=== PATIENT | female | born 1965 | race Two or more races ===

== ENCOUNTER 2020-04-29 08:32 | Emergency (ER) | payer OTHER, SELFPAY ==
[2020-04-29 09:36] VITALS: BP 167/71; PULSE 67; RESP 16; TEMP 36.6; O2SAT 100; BMI 41.1
--- NOTE | 2020-04-29 09:58 | ED_ITS ---
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 Admits pain worse with movement. Denies trauma/falls, fever, chills, numbness/tingling, chest pain MD Complaint: extremity pain Onset (ago): day(s) Related Data Previous Rx's Medication Instructions Recorded acetaminophen [Tylenol Extra 500 mg PO Q6H PRN #20 tab 04/29/20 Strength] cyclobenzaprine 5 mg PO Q8H PRN 5 Days #14 tab 04/29/20 lidocaine [Lidoderm] 1 patch TOPICAL DAILY PRN #30 ea 04/29/20 MDD remove after 12 hours naproxen 500 mg PO BID PRN 10 Days #20 tab 04/29/20 Allergies Allergy/AdvReac Type Severity Reaction Status Date / Time No Known Allergies Allergy Unverified 01/03/20 16:03 [No Known Allergies*] Review of Systems Review of Systems: Constitutional: No Weight loss, No Fever, No Chills Cardiovascular: No Chest Pain, No SOB Respiratory: No Cough Musculoskeletal: + joint pain, No Myalgias, + Joint Swelling Skin: No Skin Lesions, No rash Neuro: No Weakness, No Numbness, No Paresthesias Yes all other systems are reviewed and are negative [facility] Past Medical History Attestation statement: The following information was validated with the patient. Medical History (Updated 04/29/20 @ 10:02 by ANALIA Segovia) FHx: cholecystectomy Surgical History (Updated 04/29/20 @ 09:39 by Melvi Calix) H/O tubal ligation Social History Social History Advance Directives: No Advance Directives Information Provided: No Physical Exam Vital Signs: Vital Signs: Last Vital Signs Temp 97.8 F 04/29/20 09:36 Pulse 67 04/29/20 09:36 Resp 16 04/29/20 09:36 BP 167/71 H 04/29/20 09:36 Pulse Ox 100 04/29/20 09:36 Body Mass Index 41.1 Const: General: cooperative and healthy appearing Orientation/consciousness: patient oriented x3 Limitations: no limitations HENMT: Head: Yes normal to inspection Ears: hearing grossly normal bilaterally General nose exam: Normal external nose present Face and sinus: Yes normal facial exam Eyes: General: appearance normal, both eyes and all related structures EOM: EOMs intact bilaterally Neck: Neck: Yes normal visual inspection and Yes no meningeal signs Resp: Effort & Inspection: normal respiratory effort Cardio: Rate: regular rate Peripheral pulses: radial pulses present GI: Inspection: Yes normal to inspection Skin: Rashes: no rashes Wounds: no wounds Neuro: General: patient oriented x3 and no meningeal signs Gait exam (Neuro): Normal gait present Extrem: Other: Left forearm with mild swelling and proximal/volar MSK tenderness to palpation. No deformity. Elbow/wrist/shoulder/hand nontender with full range of motion intact. Pronation/supination intact. No fluctuance/induration or cellulitis. Neurovascularly intact. Pain reproducible with arm movement MDM - Extremity (Nontraumatic) MDM Narrative Medical decision making narrative: On exam VS, NAD/nontoxic-appearing, left forearm MSK tenderness elicited. It is likely MSK pain. Low concern for fracture/dislocation or ACS Discharge Plan Discharge Clinical Impression: Musculoskeletal arm pain Qualifiers: Laterality: left Qualified Code(s): M79.602 - Pain in left arm Patient Disposition: Home, Self-Care Instructions: Musculoskeletal Pain (ED) Additional Instructions: Your pain is most consistent with musculoskeletal strain Flexeril is a muscle relaxer, take at night as it makes you drowsy, do not drive, drink alcohol, or operate machinery while taking it Naproxen as an anti-inflammatory / pain medication, take with food Lidoderm patches are numbing patches, apply to painful area In addition take Tylenol at home If symptoms persist or worsen, pain becomes unbearable, you developed urinary retention or incontinence, or weakness return to the ED Prescriptions: New acetaminophen [Tylenol Extra Strength] 500 mg tablet 500 mg PO Q6H PRN (Reason: pain or fever) Qty: 20 RF: 0 lidocaine [Lidoderm] 5 % adhesive patch,medicated 1 patch topical DAILY MDD remove after 12 hours PRN (Reason: pain) Qty: 30 RF: 0 naproxen 500 mg tablet 500 mg PO BID PRN (Reason: pain) 10 Days Qty: 20 RF: 0 cyclobenzaprine 5 mg tablet 5 mg PO Q8H PRN (Reason: pain (scale score 7-10)) 5 Days Qty: 14 RF: 0 Referrals: Physician,Unknown [Primary Care Provider] - 2 days Stand Alone Forms: Work/School Release
== END 2020-04-29 10:18 | disposition home or self-care (01) ==
PROVIDERS: Emergency Provider Emergency Medicine Emergency Medical Services
DX: M79.632 Pain in left forearm (principal); Z79.899 Other long term (current) drug therapy
CPT/HCPCS: 99283

== ENCOUNTER → 2020-08-18 09:24 | Outpatient (BNVA) | payer MEDICAID, SELFPAY | PROVIDERS: PCP Registered Nurse; Referring Provider Registered Nurse; Visit Provider Physician Assistant | DX: Z12.11 Encounter for screening for malignant neoplasm of colon (principal) | CPT/HCPCS: 99202 ==

== ENCOUNTER 2020-09-04 08:36 | Outpatient (REF) | payer MEDICAID, SELFPAY ==
--- NOTE | ~2020-09-04 | MM_ITS ---
EXAMINATION: MM SCREENING DIGITAL BREAST TOMOSYNTHESIS, BILATERAL CLINICAL INFORMATION: Screening. Asymptomatic. The lifetime risk of breast cancer based on the Tyrer-Cuzick Model is 12%. COMPARISON: Mammography: 01/09/2015 TECHNIQUE: Digital breast tomosynthesis is performed in both the craniocaudal and mediolateral oblique views along with computer-aided detection (CAD). Synthesized 2D images are generated from the tomosynthesis. Additional exaggerated left CC view and additional left MLO view are provided. FINDINGS: The breasts are almost entirely fatty (ACR BI-RADS breast composition Category a). Background stromal markings are stable. There is no developing density or interval mass or architectural abnormality. No abnormal calcifications. The axilla and skin contours are unremarkable. MM/MM tomosynthesis screening BI IMPRESSION: No mammographic evidence of malignancy. ASSESSMENT: BI-RADS 1: Negative RECOMMENDATION: Routine annual mammography screening. This patient's information was entered into a reminder system with a target due date for their next mammogram.
== END 2020-09-04 08:37 | disposition home or self-care (01) ==
LOC: HO.MAMMO 08:36
PROVIDERS: PCP Registered Nurse; Visit Provider Registered Nurse
DX: Z12.31 Encounter for screening mammogram for malignant neoplasm of breast (principal)
CPT/HCPCS: 77063; 77067

== ENCOUNTER 2020-09-23 07:51 | Day surgery (SDC) | payer MEDICAID, SELFPAY ==
[2020-09-17 15:29] VITALS: BMI 39.9
--- NOTE | 2020-09-22 10:34 | P.CONAN_ITS ---
Documented by User: Prudence Saravia 09/22/20 10:34 HPI - Anesthesia Eval Consult details Narrative: 54yo F for Colonoscopy [facility] Active Problems Active Problems: All Active Problems (Updated 09/17/20 @ 15:28 by Merline Charles) Encounter for screening colonoscopy (Acute) Past Medical History Medical History (Updated 09/23/20 @ 11:05 by Zabrina Jimenez) Chronic back pain History of Kelsey's palsy Increased BMI PONV (postoperative nausea and vomiting) Surgical History Surgical History H/O tubal ligation Hx of cholecystectomy Social History Social History Household Members: Children Are you a primary physician assistant primary care to a significant other at home: No Do you presently have visiting nurse or other home services: No Alcohol intake: current Alcohol intake frequency: holidays/special occasions only Patient Tobacco Use Status: Never used Tobacco Use of substances other than those prescribed or required for medical reasons: No Have you been hit, kicked, punched, or otherwise hurt by someone within the past year? 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 Allergies Allergy/AdvReac Type Severity Reaction Status Date / Time No Known Allergies Allergy Unverified 09/17/20 15:26 [No Known Allergies*] Exam Exam Date and Time: September 22, 2020 1034 Height,Weight and Vital Signs: Height 5 ft 4 in Weight 105.687 kg Assessment and Plan Assessment Anesthesia Assessment: Chart Reviewed Documented by User: Zabrina Jimenez 09/23/20 11:05 [facility] Past Medical History Medical History (Updated 09/23/20 @ 11:05 by Zabrina Jimenez) Chronic back pain History of Kelsey's palsy Increased BMI PONV (postoperative nausea and vomiting) Family History Family history of problems with anesthesia: No Surgical History Surgical History H/O tubal ligation Hx of cholecystectomy History of Problems with Anesthesia: No Social History Social History Household Members: Children Are you a primary physician assistant primary care to a significant other at home: No Do you presently have visiting nurse or other home services: No Alcohol intake: current Alcohol intake frequency: holidays/special occasions only Patient Tobacco Use Status: Never used Tobacco Use of substances other than those prescribed or required for medical reasons: No Have you been hit, kicked, punched, or otherwise hurt by someone within the past year? 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 Allergies Allergy/AdvReac Type Severity Reaction Status Date / Time No Known Allergies Allergy Unverified 09/17/20 15:26 [No Known Allergies*] Exam Height,Weight and Vital Signs: Vital Signs Temp Pulse Resp BP Pulse Ox 09/23/20 08:39 47 L 152/76 H 09/23/20 08:35 45 L 09/23/20 08:15 96.9 F 64 16 153/85 H 97 Airway Mallampati Class: II TM Dist: >3cm Neck ROM: Full Heart: RRR Lungs: CTAB Assessment and Plan Assessment Anesthesia Assessment: Anesthesia Plan Discussed and Chart Reviewed Final Anesthetic Review NPO: Yes ASA Class: II Final Preanesthetic Review: No Changes in Pt Med Stat, Meds/Allgs Chart Reviewed, Consent Obtained/Reviewed and Anes Risks/Benef Reviewed Patient Risk: Intermediate Procedure Risk: Low Assessment/Block/Sedation in SS: Assess/Block/Sedation-SS Anesthetic Plan Anesthetic Plan: MAC: Disposition: Standard PACU
--- NOTE | 2020-09-23 08:09 | PC.NURSE ---
RIGHT INNDER WRIST HAD A BURN FROM HOT WATER AT HOME AND SMALL BURN TO ABDOMEN. LAST THRUSDAY.
[2020-09-23 08:15] VITALS: BP 153/85; PULSE 64; RESP 16; TEMP 36.1; O2SAT 97
[2020-09-23 08:35] VITALS: PULSE 45
[2020-09-23] MEDS: Lactated Ringers 1,000 ML 100 ML IVCONT (08:37)
[2020-09-23 08:39] VITALS: BP 152/76; PULSE 47
--- NOTE | 2020-09-23 09:40 | W.PM.OPN ---
Operative Note Operative Note Date of Service: 09/23/20 Narrative: Pre-op diagnosis: Colon cancer screening Post-op diagnosis: other (Colon polyps, diverticulosis) Procedure: COLONOSCOPY TILL CECUM WITH SNARE POLYPECTOMY Consent: Indications for the procedure and potential complications of bleeding, perforation, reaction to medications and missed diagnosis were discussed with the patient and informed consent was obtained. Instrument: Olympus PCF H 190 L variable stiffness pediatric colonoscope Monitoring: Vital signs and clinical assessment, intermittent blood pressure monitoring, continuous EKG monitoring, Pulse oximetry and Carbon Dioxide monitoring were done throughout the procedure. Colon withdrawl time was 25 minutes. Procedure: The patient was placed in the left lateral decubitis position and pre-procedure medications were administered. After a digital rectal examination of the ano-rectum, the video colonoscope was inserted into the rectum and advanced through the colon to the cecum. The colonoscope was slowly withdrawn in a retrograde panoramic fashion and the colon mucosa was carefully examined including a retroflexed view of the rectum. Findings and interventions are described below. Procedure Difficulty: Colon is long and tortuous and there was some loop formation. LLQ pressure was applied to intubate the cecum Findings: Terminal Ileum: Not evaluated Cecum: Normal Ascending Colon: Normal Transverse Colon: Two 7-10 mm sessile polyps removed with a cold snare Descending Colon: Moderate diverticulosis Sigmoid Colon: A 12-15 mm sessile polyp removed with a hot snare and moderate diverticulosis Rectum: Normal Ano-rectum: Normal Colon preparation: Good some irrigation Impression and Post Procedure Diagnosis: Colonoscopy Findings: Three small to medium sized polyps removed Moderate diverticulosis seen in the left colon Plan: Await pathology results Patient has an appointment on 10/08/20 in the GI Clinic with ANALIA Renner. Repeat Colonoscopy interval based on path results - in 3 years if polyps are adenomatous and 10 years if polyps are hyperplastic. Above findings were reviewed with the patient and colon polyps and diverticulosis handouts were given in the discharge area Surgeon: Cordell Heath MD Anesthesia: MAC (Blanca Mendes CRNA) Was an Advertising Copywriter used for this Procedure?: Yes Advertising Copywriter: Obi Barrera Estimated blood loss (mL): 0 Pathology: other (A. TC polyps x 2, B. SC polyp at 30 cms) Condition: stable Disposition: PACU
--- NOTE | 2020-09-23 09:40 | MHC.SHP ---
Pre-Procedural Eval Section B Chief Complaint: Screening Details of Present Illness: colon cancer screening Relevant Family History (Specify if Yes): No Relevant Social History: None Present Medications: see Short Stay Collaborative assessment Medical History: Significant History (Chronic back pain, hx of Kelsey's palsy) History of Previous Operations: Relevant previous surgery/procedure and date(s) (H/O tubal ligation) Allergies: Allergies Allergy/AdvReac Type Severity Reaction Status Date / Time No Known Allergies Allergy Unverified 09/17/20 15:26 [No Known Allergies*] Review of Systems Sugical H&P ROS: Negative: Constitution, Cardiovascular, Respiratory and Gastrointestinal Exam Surgical H&P Exam: Normal: Heart, Normal: Lungs and Normal: Extremities Plan Diagnosis/Plan: Unchanged I have reviewed the history and physical and performed a pertinent physical examination on my patient. No changes have occurred unless specified.
[2020-09-23 10:36] VITALS: BP 111/70; PULSE 88; RESP 16; TEMP 36.2; O2SAT 96
[2020-09-23 10:51] VITALS: BP 123/75; PULSE 69; RESP 18; O2SAT 98
== END 2020-09-23 11:12 | disposition home or self-care (01) ==
PROVIDERS: PCP Registered Nurse; Visit Provider Internal Medicine Gastroenterology
PROC: 0DJD8ZZ Inspection of Lower Intestinal Tract, Via Natural or Artificial Opening Endoscopic (ICD-10-PCS; CPT 45378; principal; 2020-09-23 09:10)
DX: Z12.11 Encounter for screening for malignant neoplasm of colon (principal); D12.5 Benign neoplasm of sigmoid colon; K63.5 Polyp of colon; K57.30 Diverticulosis of large intestine without perforation or abscess without bleeding; Z90.49 Acquired absence of other specified parts of digestive tract
CPT/HCPCS: 45380; 88305

== ENCOUNTER → 2020-10-08 11:46 | Outpatient (BNVA) | payer MEDICAID, SELFPAY | PROVIDERS: PCP Registered Nurse; Referring Provider Registered Nurse; Visit Provider Physician Assistant | DX: Z09 Encounter for follow-up examination after completed treatment for conditions other than malignant neoplasm (principal); K63.5 Polyp of colon; K57.30 Diverticulosis of large intestine without perforation or abscess without bleeding; D36.9 Benign neoplasm, unspecified site; Z68.41 Body mass index [BMI] 40.0-44.9, adult | CPT/HCPCS: 99212 ==

== ENCOUNTER 2021-07-08 09:38 | Outpatient (REF) | payer MEDICAID, SELFPAY ==
--- NOTE | ~2021-07-08 | XR_ITS ---
EXAMINATION: BILATERAL KNEE X-RAY CLINICAL INFORMATION: Pain post fall COMPARISON: None TECHNIQUE: 4 views each knee FINDINGS: Right: Bone alignment is normal. No fracture or dislocation is seen. There are small osteophytes at the patellofemoral joint. Joint spaces are otherwise normal. There is no joint effusion. Left: Bone alignment is normal. No acute fracture or dislocation is seen. There is a well-corticated soft tissue ossification adjacent to the lateral femoral condyle, question related to old trauma. There are small osteophytes at the patellofemoral and femoral tibial joints. There is no joint effusion. XR/XR knee RT 4V IMPRESSION: Mild degenerative changes. No fracture or dislocation.
--- NOTE | ~2021-07-08 | XR_ITS ---
EXAMINATION: BILATERAL KNEE X-RAY CLINICAL INFORMATION: Pain post fall COMPARISON: None TECHNIQUE: 4 views each knee FINDINGS: Right: Bone alignment is normal. No fracture or dislocation is seen. There are small osteophytes at the patellofemoral joint. Joint spaces are otherwise normal. There is no joint effusion. Left: Bone alignment is normal. No acute fracture or dislocation is seen. There is a well-corticated soft tissue ossification adjacent to the lateral femoral condyle, question related to old trauma. There are small osteophytes at the patellofemoral and femoral tibial joints. There is no joint effusion. XR/XR knee LT 4V IMPRESSION: Mild degenerative changes. No fracture or dislocation.
== END 2021-07-08 09:39 | disposition home or self-care (01) ==
LOC: HO.XRAY 09:38
PROVIDERS: Absent Provider Nurse Practitioner; PCP Nurse Practitioner; Visit Provider Family Medicine
DX: M25.561 Pain in right knee (principal); M25.562 Pain in left knee
CPT/HCPCS: 73564

== ENCOUNTER 2021-09-10 09:14 | Outpatient (REF) | payer MEDICAID, SELFPAY ==
--- NOTE | ~2021-09-10 | MM_ITS ---
EXAMINATION: MM SCREENING DIGITAL BREAST TOMOSYNTHESIS, BILATERAL CLINICAL INFORMATION: Screening. Asymptomatic. The lifetime risk of breast cancer based on the Tyrer-Cuzick Model is 10.6%. COMPARISON: Mammography: September 04, 2020 and study of January 09, 2015 TECHNIQUE: Digital breast tomosynthesis is performed in both the craniocaudal and mediolateral oblique views along with computer-aided detection (CAD). Synthesized 2D images are generated from the tomosynthesis. FINDINGS: The breasts are almost entirely fatty (ACR BI-RADS breast composition Category a). There are no significant masses, abnormal calcifications, or other abnormalities. MM/MM tomosynthesis screening BI IMPRESSION: There are no significant changes from prior study. ASSESSMENT: BI-RADS 1: Negative RECOMMENDATION: Routine annual mammography screening. This patient's information was entered into a reminder system with a target due date for their next mammogram.
== END 2021-09-10 09:15 | disposition home or self-care (01) ==
LOC: HO.MAMMO 09:14
PROVIDERS: PCP Nurse Practitioner; Visit Provider Registered Nurse
DX: Z12.31 Encounter for screening mammogram for malignant neoplasm of breast (principal)
CPT/HCPCS: 77063; 77067

== ENCOUNTER 2022-09-16 09:31 | Outpatient (REF) | payer MEDICAID, SELFPAY ==
--- NOTE | ~2022-09-16 | MM_ITS ---
EXAMINATION: MM SCREENING DIGITAL BREAST TOMOSYNTHESIS, BILATERAL CLINICAL INFORMATION: Screening. Asymptomatic. The lifetime risk of breast cancer based on the Tyrer-Cuzick Model is 11%. COMPARISON: Mammography: 09/10/2021, 09/04/2020, 01/09/2015 TECHNIQUE: Digital breast tomosynthesis is performed in both the craniocaudal and mediolateral oblique views along with computer-aided detection (CAD). Synthesized 2D images are generated from the tomosynthesis. FINDINGS: The breasts are almost entirely fatty (ACR BI-RADS breast composition Category a). There are no significant masses, abnormal calcifications, or other abnormalities. Background stromal markings are normal. No developing density or architectural abnormality. The axilla and skin contours are unremarkable. MM/MM tomosynthesis screening BI IMPRESSION: No mammographic evidence of malignancy. ASSESSMENT: BI-RADS 1: Negative RECOMMENDATION: Routine annual mammography screening. This patient's information was entered into a reminder system with a target due date for their next mammogram.
== END 2022-09-16 09:32 | disposition home or self-care (01) ==
LOC: HO.MAMMO 09:31
PROVIDERS: Visit Provider Nurse Practitioner
DX: Z12.31 Encounter for screening mammogram for malignant neoplasm of breast (principal)
CPT/HCPCS: 77063; 77067

== ENCOUNTER 2022-10-28 10:04 | Outpatient (REF) | payer OTHER, SELFPAY ==
--- NOTE | ~2022-10-28 | US_ITS ---
EXAMINATION: US VENOUS ULTRASOUND WITH DOPPLER LOWER EXTREMITY, RIGHT CLINICAL INFORMATION: Pain. COMPARISON: None available. TECHNIQUE: Ultrasound of the deep veins is performed from the hip to the calf with compression sonography and color and pulse Doppler assessment. Spectral analysis with color-flow imaging is performed. FINDINGS: There is normal venous compression and respiratory variation and augmented flow. The visualized common femoral vein, superficial femoral vein, profunda femoral vein, popliteal vein, and the trifurcation region shows no evidence of deep venous thrombosis. There is no significant popliteal fossa cyst. A small varicosities noted. There are shotty, nonpathologically enlarged right inguinal lymph nodes. If the patient's symptoms persist, followup ultrasound in 5 days 7 days might be of value to exclude proximal propagation from a non-visualized calf vein. US/US venous duplex LE RT IMPRESSION: No DVT demonstrated in the right lower extremity.
== END 2022-10-28 10:05 | disposition home or self-care (01) ==
LOC: HO.US 10:04
PROVIDERS: PCP Registered Nurse; Visit Provider Registered Nurse
DX: M79.604 Pain in right leg (principal)
CPT/HCPCS: 93971

== ENCOUNTER 2023-02-17 06:07 | Outpatient (REF) | payer OTHER, SELFPAY ==
--- NOTE | ~2023-02-17 | XR_ITS ---
EXAMINATION: XR KNEE AP STANDING CLINICAL INFORMATION: Pain in right knee COMPARISON: 07/08/2021 TECHNIQUE: AP bilateral standing view of the knees was obtained. And bilateral sunrise knees FINDINGS: Right knee: Small tricompartmental osteophytes. Mild medial joint space narrowing. Left knee: Small tricompartmental osteophytes. Mild medial joint space narrowing. Redemonstration of a well-corticated soft tissue ossification adjacent to the lateral femoral condyle, possibly related to old trauma. XR/XR knee RT 1V IMPRESSION: Mild degenerative changes in bilateral knees.
--- NOTE | ~2023-02-17 | XR_ITS ---
EXAMINATION: XR KNEE AP STANDING CLINICAL INFORMATION: Pain in right knee COMPARISON: 07/08/2021 TECHNIQUE: AP bilateral standing view of the knees was obtained. And bilateral sunrise knees FINDINGS: Right knee: Small tricompartmental osteophytes. Mild medial joint space narrowing. Left knee: Small tricompartmental osteophytes. Mild medial joint space narrowing. Redemonstration of a well-corticated soft tissue ossification adjacent to the lateral femoral condyle, possibly related to old trauma. XR/XR knee standing BI IMPRESSION: Mild degenerative changes in bilateral knees.
--- NOTE | ~2023-02-17 | XR_ITS ---
EXAMINATION: XR KNEE AP STANDING CLINICAL INFORMATION: Pain in right knee COMPARISON: 07/08/2021 TECHNIQUE: AP bilateral standing view of the knees was obtained. And bilateral sunrise knees FINDINGS: Right knee: Small tricompartmental osteophytes. Mild medial joint space narrowing. Left knee: Small tricompartmental osteophytes. Mild medial joint space narrowing. Redemonstration of a well-corticated soft tissue ossification adjacent to the lateral femoral condyle, possibly related to old trauma. XR/XR knee LT 1V IMPRESSION: Mild degenerative changes in bilateral knees.
== END 2023-02-17 06:08 | disposition home or self-care (01) ==
LOC: HO.HOSX 06:07
PROVIDERS: Visit Provider Physician Assistant
DX: M25.561 Pain in right knee (principal); M25.562 Pain in left knee; M22.2X1 Patellofemoral disorders, right knee; M22.2X2 Patellofemoral disorders, left knee; Z91.81 History of falling
CPT/HCPCS: 73560; 73565; 99202

== ENCOUNTER 2023-02-17 10:40 | Outpatient (AMB) | payer OTHER, SELFPAY ==
--- NOTE | 2023-02-17 10:48 | A.OFFVIS_ITS ---
Intake Vital Signs 02/17/23 11:08 Height 5 ft 3.5 in Weight 240 lb BMI 41.8 Intake Visit Reasons: OA B/L knees Intake Note: Radha jacques 57 year old female presents today as a new patient with complaints of bilateral knee pain. Patient reports pain present for a while however about a year ago while at work she fell on both of her knees. States with walking her knee will buckle and has difficulty with stair use. Her left knee is the worse. Attended PT with little relief. Finds little relief with topical cream. Allergies No Known Allergies [No Known Allergies*] Allergy (Verified 02/17/23 11:14) HPI OA B/L knees HPI Details 57-year-old female who presents to the [facility] today for an evaluation of bilateral knee pain s/p fall on her bilateral knees at work, about an year ago. She states she has bilateral knee pain which is worse on her left knee. Her pain is aggravated with stair use, getting in or out of car and standing. She also c/o buckling of her knees with ambulation. She had undergone physical therapy with mild relief. She finds mild relief with topical cream. She does not have a history of diabetes. 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 [facility] Medical History (Updated 02/17/23 @ 11:25 by Joseph Hoang PA-C) Increased BMI Chronic back pain History of Kelsey's palsy PONV (postoperative nausea and vomiting) Surgical History H/O colonoscopy Hx of cholecystectomy H/O tubal ligation Social History (Updated 02/17/23 @ 11:08 by GRICELDA Borden) Household Members: Children Are you a primary health care attorney to a significant other at home: No Do you presently have visiting nurse or other home services: No Alcohol intake: current Alcohol intake frequency: holidays/special occasions only Patient Tobacco Use Status: Never used Tobacco Current occupational status: employed 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 Review of Systems Const All systems reviewed & are unremarkable except as noted in HPI and below Physical Exam Vital Signs: BMI result Body Mass Index 41.8 Const General: cooperative, healthy appearing, comfortable, no acute distress, well developed and alert Orientation/consciousness: patient oriented x3 HEENT Head: Yes normal to inspection, Yes normocephalic and Yes atraumatic Eyes General: appearance normal, both eyes and all related structures Resp Effort & Inspection: normal respiratory effort and able to speak in complete sentences Cardio Rate: regular rate Peripheral pulses: Peripheral pulses 2+ throughout GI Palpation (GI): Soft to palpation Skin Lesions: no lesions Rashes: no rashes Neuro General: patient oriented x3 Extrem Other: Bilateral knee: Skin intact, no erythema or joint effusion. Retropatellar tenderness present. Full ROM with crepitus. Negative Tyler?s. No ligamentous laxity. NVI. Results Reviewed Results Reviewed: Xrays were obtained in the office today and personally reviewed by me of both knees show PF oa Assessment & Plan Assessment & Plan (1) Patellofemoral arthralgia of both knees: Code(s): M22.2X1 - Patellofemoral disorders, right knee; M22.2X2 - Patellofemoral disorders, left knee Plan We discussed options which include PT, NSAIDs and injections. The patient will defer on the injection today and proceed with PT and NSAIDs. I also sent her a prescription of Celebrex in the office today. If symptoms persist, the patient will contact me for an injection, otherwise, PRN. Orders: Orders XR knee standing BI Today M25.561 - Pain in right knee, M25.562 - Pain in left knee XR knee RT 1V Today M25.561 - Pain in right knee XR knee LT 1V Today M25.562 - Pain in left knee PT Evaluation and Treatment Today M22.2X1 - Patellofemoral disorders, right knee, M22.2X2 - Patellofemoral disorders, left knee Medications: New celecoxib (Celebrex) 200 mg PO BID 60 caps 3RF 30 days Patient Instructions: Scribed for Joseph Hoang PA-C, by Humberto James medical support assistant, on 02/17/2023 at 11:00 AM EST. Joseph Whiatker PA-C, have personally reviewed and agree with t he information entered by the scribe. Coding Level of Care Code New Pt Level 3 (99586) Diagnoses Patellofemoral arthralgia of both knees M22.2X1; M22.2X2
[2023-02-17 11:08] VITALS: BMI 41.8
== END 2023-02-17 11:45 | disposition home or self-care (01) ==
PROVIDERS: PCP Registered Nurse; Visit Provider Physician Assistant
DX: M22.2X1 Patellofemoral disorders, right knee (principal); M22.2X2 Patellofemoral disorders, left knee
CPT/HCPCS: 99204

== ENCOUNTER 2023-09-19 09:02 | Outpatient (REF) | payer OTHER, SELFPAY ==
--- NOTE | ~2023-09-19 | MM_ITS ---
EXAMINATION: MM SCREENING DIGITAL BREAST TOMOSYNTHESIS, BILATERAL CLINICAL INFORMATION: Screening. Asymptomatic. COMPARISON: Mammography: This study is compared with prior exams dating back to 2020. TECHNIQUE: Digital breast tomosynthesis is performed in both the craniocaudal and mediolateral oblique views along with computer-aided detection (CAD). Synthesized 2D images are generated from the tomosynthesis. FINDINGS: The breasts are almost entirely fatty (ACR BI-RADS breast composition Category a). There are no significant masses, abnormal calcifications, or other abnormalities. MM/MM tomosynthesis screening BI IMPRESSION: No mammographic evidence of malignancy. ASSESSMENT: BI-RADS BI-RADS 1 - Negative RECOMMENDATION: Routine annual mammography screening. 1 year F/U This examination should not preclude the clinical evaluation of a suspicious palpable abnormality. This patient's information was entered into a reminder system with a target due date for their next mammogram.
== END 2023-09-19 09:03 | disposition home or self-care (01) ==
LOC: HO.MAMMO 09:02
PROVIDERS: PCP Registered Nurse; Visit Provider Nurse Practitioner
DX: Z12.31 Encounter for screening mammogram for malignant neoplasm of breast (principal)
CPT/HCPCS: 77063; 77067

== ENCOUNTER → 2023-09-19 09:15 | Outpatient (BNV) | payer OTHER, SELFPAY | PROVIDERS: PCP Registered Nurse; Visit Provider Radiology Diagnostic Radiology | DX: Z12.31 Encounter for screening mammogram for malignant neoplasm of breast (principal) | CPT/HCPCS: 77063; 77067 ==

== ENCOUNTER 2023-11-01 13:05 | Outpatient (REF) | payer OTHER, SELFPAY ==
--- NOTE | ~2023-11-01 | XR_ITS ---
EXAMINATION: XR ELBOW, LEFT CLINICAL INFORMATION: Left elbow pain COMPARISON: None available. TECHNIQUE: Four views of the left elbow. FINDINGS: The elbow joint spaces are well-preserved. No arthritic deformity. No fracture, subluxation or elbow joint effusion. There is minimal enthesophyte formation of the lateral epicondyle. The soft tissues are unremarkable. XR/XR elbow LT min 3V IMPRESSION: * No evidence of arthritic disease or joint effusion at the left elbow. * Minimal enthesophyte formation of the lateral humeral epicondyle.
== END 2023-11-01 13:06 | disposition home or self-care (01) ==
LOC: HO.HHCX 13:05
PROVIDERS: Visit Provider Family Medicine
DX: M25.522 Pain in left elbow (principal)
CPT/HCPCS: 73080

== ENCOUNTER 2024-09-20 08:33 | Outpatient (REF) | payer OTHER, SELFPAY ==
--- NOTE | ~2024-09-20 | MM_ITS ---
EXAMINATION: MM SCREENING DIGITAL BREAST TOMOSYNTHESIS, BILATERAL CLINICAL INFORMATION: Screening. Asymptomatic. COMPARISON: Mammography: Comparison is made with available priors TECHNIQUE: Digital breast mammography with tomosynthesis is performed in both the craniocaudal and mediolateral oblique views along with computer-aided detection (CAD). FINDINGS: There are scattered areas of fibroglandular density (ACR BI-RADS breast composition Category b). There are no significant masses, abnormal calcifications, or other abnormalities. MM/MM tomosynthesis screening BI IMPRESSION: No mammographic evidence of malignancy. ASSESSMENT: BI-RADS BI-RADS 1 - Negative RECOMMENDATION: Routine annual mammography screening. 1 year F/U This examination should not preclude the clinical evaluation of a suspicious palpable abnormality. This patient's information was entered into a reminder system with a target due date for their next mammogram. Electronically signed by: Pamela Zavala DO 09/24/2024 01:01 PM EDT
--- OUTSIDE RECORDS SUMMARY | 2024-09-20 08:54 | XMS_ITS | Encounter Summary ---
Author Organization [employer] Address [address] [place] [address] [address] [place] [address] Care Team Providers Care Compliance Manager Name Role Phone Yessenia Looney Primary Care Provider [phone] Reason for Visit * Reason Onset Date Comments Appointment Request 09/13/2023 Encounter Details Date Type Department Care Team ([facility] st Contact Info) Description 09/13/2023 Telephone [facility] MEDICINE [address] [place] [address] Yessenia Looney FNP [address] [place] [address] Appointment Request Social History Tobacco Use Types Packs/Day Years Used Date Smoking Tobacco: Never Smokeless Tobacco: Never Alcohol Use Standard Drinks/Week Comments Yes 0 (1 standard drink = 0.6 oz pur e alcohol) Rare occasions Depression Answer Date Recorded Patient Health Questionnaire-9 Score 1 10/28/2022 Housing Stability Answer Date Recorded What is your housing situation today? I have real rosa 02/14/[address] you li ve. Do you have problems with any of the following? None of the above 02/14/2023 Food Insecurity Answer Date Recorded Within the past 12 months, y ou worried that your food would run out before you got money to buy more: Never True 02/14/2023 Within the past 12 months,th e food you bought just didn't last and you didn't have enough money to get more: Never True Transportation Answer Date Recorded In the past 12 months, has l ack of transportation kept you from medical appts, meetings, work or from getting things needed for daily living? No 02/14/2023 Utilities Answer Date Recorded In the past 12 months, has t he electric, gas, oil or water company threatened to shut off services in your home? No 02/14/2023 Depression Answer Date Recorded Patient Health Questionnaire-2 Score 0 10/28/2022 Comments Unknown Sex and Gender Information Value Date Recorded Sex Assigned at Female 02/15/2022 10:14 AM EDT Legal Sex Female 10:14 AM EDT Gender Identity Female 02/15/2022 10:14 AM EDT Sexual Orientation Don't know 02/15/2022 10 :14 AM EDT documented as of this encounter Miscellaneous Notes * Telephone Encounter - Jed Marcos - 09/13/2023 1:14 PM EDT Tc from pt had a punctual stenosis done with [facility] and was advised bu surgeon to follow up with pcp. Please contact pt at [phone] documented in this encounter Plan of Treatment Upcoming Encounters Date Type Department Care Team (Late st Contact Info) Description 10/17/2024 9:45 AM EDT Office Visit [facility] MED[facility] [address] [place] [address] Yessenia Looney FNP [address] [place] [address] documented as of this encounter Visit Diagnoses Not on filedocumented in this encounter Additional Health Concerns Assessment Noted Time PHQ-9 Depression Total Score: 1 10/29/19 23 8:49 AM EDT documented as of this encounter Care Teams Compliance Manager Relationship Specialty Start Date End Date Yessenia Looney FNP [address] [place] [address] PCP - General Family Medicine 12/09/21 documented as of this encounter
== END 2024-09-20 08:34 | disposition home or self-care (01) ==
LOC: HO.MAMMO 08:33
PROVIDERS: PCP Registered Nurse; Visit Provider Registered Nurse
DX: Z12.31 Encounter for screening mammogram for malignant neoplasm of breast (principal)
CPT/HCPCS: 77063; 77067

== ENCOUNTER → 2024-09-20 09:00 | Outpatient (BNV) | payer OTHER, SELFPAY | PROVIDERS: PCP Registered Nurse; Visit Provider Internal Medicine | DX: Z12.31 Encounter for screening mammogram for malignant neoplasm of breast (principal) | CPT/HCPCS: 77063; 77067 ==

== ENCOUNTER 2024-10-17 10:32 | Outpatient (REF) | payer OTHER, SELFPAY ==
--- OUTSIDE RECORDS SUMMARY | 2024-10-17 11:11 | XMS_ITS | Encounter Summary ---
Author Organization [employer] Address [address] [facility] [address] [place] [address] Care Team Providers Care Autocad Electrical Designer Name Role Phone Yessenia Looney Primary Care Provider [phone] Reason for Visit * Reason Onset Date Comments Appointment Request 09/13/2023 Encounter Details Date Type Department Care Team ([facility] st Contact Info) Description 09/13/2023 Telephone [facility] MEDICINE [address] [place] [address] Yessenia Looney FNP [address] [place] [address] Appointment Request Social History Tobacco Use Types [...] pt had a punctual stenosis done with [facility] and was advised bu surgeon to follow up with pcp. Please contact pt at [phone] documented in this encounter Plan of Treatment Not on file documented as of this encounter Visit Diagnoses Not on filedocumented in this encounter Additional Health Concerns Assessment Noted Time PHQ-9 Depression Total Score: 1 10/29/19 23 8:49 AM EDT documented as of this encounter Care Teams Autocad Electrical Designer Relationship Specialty Start Date End Date Yessenia Looney FNP [address] [place] [address] PCP - General Family Medicine 12/09/21 documented as of this encounter
[2024-10-17 11:26] LABS: MANUAL DIFF FLAG NO
[2024-10-17 11:48] LABS: Hematocrit 42.4 % (37.0-47.0); Hemoglobin 14.1 g/dl (12.0-16.0); Imm Gran Abs Auto 0.08 X10*3/uL (0.00-0.03); Imm Gran Pct Auto 0.8 % (0.0-0.4); Lymphocytes Absolute Auto 3.0 X10*3/uL (1.2-4.9); Mean Corpuscular HGB Conc 33.3 g/dl (31.0-35.0); Mean Corpuscular Hemoglobin 30.5 pg (27.0-33.0); Mean Corpuscular Volume 91.8 fL (80.0-98.0); NRBC Abs Auto 0.000 X10*3/uL (0.0-0.012); NRBC Pct Auto 0.0 /100WBC (0.0-0.2); Platelet Count 344 X10*3/uL (160-400); Red Blood Count 4.62 X10*6/uL (4.20-5.50); White Blood Count 10.4 X10*3/uL (4.8-10.8)
[2024-10-17 11:56] LABS: Hemoglobin A1C 140.1224 umol/L; Total Hemoglobin (HGBA1C) 3725.4636 umol/L
[2024-10-17 13:03] LABS: Alanine Aminotransferase 33 U/L (0-31); Albumin Level 4.3 g/dL (3.5-5.0); Alkaline Phosphatase 106 U/L (39-117); Anion Gap 11 (12-20); Aspartate Amino Transferase 27 U/L (5-31); Blood Urea Nitrogen 14 mg/dL (9-16); Calcium 9.5 mg/dL (8.4-10.2); Carbon Dioxide 29 mmol/L (22-29); Chloride 104 mmol/L (96-108); Cholesterol 231 mg/dL (<200); Estimated Glomerular Filt Rate > 60; HDL Cholesterol 56 mg/dL (>40); Magnesium 2.1 mg/dL (1.6-2.6); Potassium 3.7 mmol/L (3.3-5.1); Sodium 140 mmol/L (135-145); Total Protein 7.1 g/dL (6.5-8.0); Triglycerides 99 mg/dL (<150)
[2024-10-17 13:13] LABS: HIV Num 1 0.05 S/CO (0.00-0.99)
[2024-10-17 13:19] LABS: Folate 14.6 ng/mL (> or = 4.0); Vitamin B12 646 pg/mL (200-900)
[2024-10-17 18:44] LABS: CT PCR Urine NOT DETECTED (Not Detect.); NG PCR Urine NOT DETECTED (Not Detect.)
[2024-10-18 16:48] LABS: HCV Log PCR <1.18 NOT DETECTED Log IU/mL (NOT DETECTED); HepC Viral Load <15 NOT DETECTED IU/mL (NOT DETECTED)
== END 2024-10-17 10:33 | disposition home or self-care (01) ==
LOC: HO.HHCL 10:32
PROVIDERS: PCP Registered Nurse; Visit Provider Registered Nurse
DX: Z00.00 Encounter for general adult medical examination without abnormal findings (principal)
CPT/HCPCS: 36415; 80053; 80061; 82043; 82306; 82570; 82607; 82746; 83036; 83735; 84443; 85025; 86592; 87389; 87491; 87522; 87591

== ENCOUNTER 2024-12-14 14:40 | Outpatient (REF) | payer OTHER, SELFPAY ==
--- OUTSIDE RECORDS SUMMARY | 2024-12-14 14:43 | XMS_ITS | Encounter Summary ---
Author Organization [employer] Address [address] [place] [address] Care Team Providers Care Tobacco Warehouse Agent Name Role Phone Yessenia Looney JIN Primary Care Provider [phone] Encounter Details Date Type Department Care Team ([facility] st Contact Info) Description 03/03/2023 Abstract [facility] MEDICINE [address] [place] [address] Ngoc Shepherd Social History Tobacco Use Types Packs/Day Years [...] AM EDT documented as of this encounter Plan of Treatment Upcoming Encounters Date Type Department Care Team (Late st Contact Info) Description 12/19/2024 9:45 AM EDT Office Visit [facility] MEDICINE [address] [place] [address] Yessenia Looney FNP [address] [place] [address] documented as of this encounter Procedures Procedure Name Priority Date/Time Associated Diagnosis Comments COLONOSCOPY Routine 09/23/2020 documented in this encounter Results * Colonoscopy (09/23/2020) Colonoscopy Normal Normal Narrative Tita Lopez - 09/23/2020 Recommended 3 year follow up us Historical Provider HEALTH MAINTENANCE Edited Result - Final documented in this encounter Visit Diagnoses Not on filedocumented in this encounter Additional Health Concerns Assessment Noted Time PHQ-9 Depression Total Score: 1 10/29/19 23 8:49 AM EDT documented as of this encounter Care Teams Tobacco Warehouse Agent Relationship Specialty Start Date End Date Yessenia Looney FNP [address] [place] [address] PCP - General Family Medicine 12/09/21 documented as of this encounter
--- OUTSIDE RECORDS SUMMARY | 2024-12-14 14:43 | XMS_ITS | Encounter Summary ---
Author Organization [facility] Address [address] [place] [address] [address] [place] [address] Care Team Providers Care Lubrication Technician Name Role Phone Yessenia Looney Primary Care Provider [phone] Encounter Details Date Type Department Care Team (Latest Contact Info) Description 11/26/2020 Abstract [facility] CONVERSIONS Dental, Provider, DDS Social History Tobacco Use Types Packs/Day Years Used Date Smoking Tobacco: Never Assessed Comments Unknown Sex and Gender Information Value [...] Description 12/19/2024 9:45 AM EDT Office Visit [facility] MEDICINE [address] [place] [address] Yessenia Looney FNP [address] [place] [address] documented as of this encounter Visit Diagnoses Not on filedocumented in this encounter Care Teams Lubrication Technician Relationship Specialty Start Date End Date Yessenia Looney FNP [address] [place] [address] PCP - General Family Medicine 12/09/21 documented as of this encounter
--- OUTSIDE RECORDS SUMMARY | 2024-12-14 14:43 | XMS_ITS | Clinical Summary ---
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 Dx hypertension 1 kit 4 Active tobramycin-dexA METHasone (Tobradex) ophthalmic suspension INSTILL 1 DROP INTO BOTH EYES TWO TIMES A DAY 4 Active losartan-hydroC HLOROthiazide (Hyzaar) 50-12.5 MG tablet TAKE 1 TABLET BY MOUTH EVERY MORNING 90 tablet 3 4 Active naproxen (Naprosyn) 500 MG tabletIndicatio ns:Pain Take 1 tablet (500 mg) by mouth if needed in the morning and at bedtime for mild pain. 30 tablet 5 05/14/19 26 Active Diclofenac Sodium (Voltaren) 1 % gelIndications: Pain Use by topical route 4 times daily as needed for pain 150 g 3 5 Active Active Problems Problem Noted Date Diagnosed Date Pain 05/15/2024 Assessment & Plan (05/15/2024 7:23 PM EST): Area of tenderness to the base of neck and lower right trapezius muscle Plan Take Naprosyn 500 mg twice daily as needed Diclofenac sodium 1% gel - apply to tender area prn Healthcare maintenance 10/28/2022 Overview (10/18/2024): Colonoscopy: 09/23/20. 3 polyps removed and noted moderate diverticulosis in the left colon. Repeat in 3 year Mammo: 09/20/24: BIRADS 1 Osteoarthritis of both knees 07/29/2022 Overview (08/04/2023): -XR 07/08/21: IMPRESSION: Mild degenerative changes. No fracture or dislocation. -Continues with APAP PRN, trial nabumetone BID PRN -Eval by [facility] [place] 2023 Assessment & Plan (08/04/2023 10:33 AM EDT): Discussed evidence and consideration of turmeric for arthritis (pt already using in her cooking) Assessment & Plan (10/31/2022 6:12 PM EDT): Continue with APAP PRN In agreement with referral to Ortho Assessment & Plan (07/29/2022 12:10 PM EDT): -Declines interest in referral to PT, ortho, or [facility] joint injection clinic at this time -Encouraged symptomatic management including topical voltaren and lidocaine patches PRN -Continue with APAP PRN Follow up in 2 months, sooner PRN Bilateral epiphora 05/07/2022 Overview (03/17/2023): -Symptoms began mid Mar 2022 -Eval at [facility] 06/03/22 that revealed stenosis of bilateral lower puncta, to the point of causing epiphora -[facility] Mar [facility]23: bilateral punctual stenosis Assessment & Plan (08/04/2023 10:41 AM EDT): -Symptoms have improved s/p procedure. 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 -Followed with specialists including [facility] in the past Class 3 severe obesity in adult 04/24/2022 Essential hypertension 07/17/2021 Overview (03/17/2023): -BP goal < 140/90 mmHg -Continues with losartan-hydrochlorothiazide 50-12.5 mg daily Assessment & Plan (10/18/2024 7:24 AM EDT): Well controlled with current regimen Assessment & Plan (08/04/2023 10:33 AM EDT): Well controlled with current regimen BP monitor sent to pharmacy to record home readings Assessment & Plan (03/17/2023 5:40 PM EST): Well controlled Resolved Problems Problem Noted Date Diagnosed Date Resolved Date Fall 05/15/2024 10/18/2024 Assessment & Plan (05/15/2024 7:16 PM EST): Radha fell back wards hitting the base of her neck and back while attempting to climb a chair to adjust her curtain. No loss of consciousness, weakness, numbness or major trauma. No bruises or laceration to the head or neck. Neuro evaluation with in normal limits. Tenderness to the upper and lower right trapezius muscle. Neck supple ROM intact. Negative for pain in the bony prominence of the neck. No history of previous fall Plan Take your pain medications as prescribed. Apply topical pain gel to area of tenderness as prescribed Evaluated patient medications that can increase fall risk. Patient education on BP medication Patient education on fall prevention and safe practices. Use of step stool with railing to reach high objects. If possible ask for assistance in elevated tasks Report immediately if there is worsening or persistent headache, confusion, severe drowsiness, blurry vision or loss of balance Follow up in 2-4 wks Morbid obesity 07/17/2021 04/24/2022 Encounters Date Type Department Care Team Description 10/22/2024 Results Follow-Up [facility] [address] [place] [address] Yessenia Looney FNP Albumin, Random Urine W/Creatinine, Lipid Panel, Standard, Hemoglobin A1c, Additional followed-up results: 9 10/17/2024 9:45 AM EDT Office Visit [facility] MEDICINE [address] [place] [address] Yessenia Looney FNP Essential hypertension (Primary Dx); Numbness and tingling; Healthcare maintenance 10/17/2024 Travel 10/16/2024 Telephone [facility] MEDICINE [address] [place], [place] [phone] Yessenia Looney FNP Chart Prep 09/20/2024 Orders Only [facility] [address] [place], [place] [phone] Yessenia Looney FNP 09/19/2024 Telephone [facility] MEDICINE [address] [place], [place] [phone] Yessenia Looney FNP Nurse Triage from Last 3 Months Immunizations Immunization Administration Dates Next Due INFLUENZA INJECTABLE QUADRIV ALANT CCIIV4 MDCK Multi-dose vial 04/28/2021 INFLUENZA VACCINE QUADRIVALE NT RECOMBINANT PRESERVATIVE FREE RIV4 02/14/2020 Influenza injectable quadriv alent IIV4 with preservative 01/02/2015 Influenza injectable quadrivalent preservative f ree 03/16/2023,04/23/2022 Tdap 01/02/2015 Zoster, Recombinant 09/16/2020,07/15/2020 Social History Tobacco Use Types Packs/Day Years Used Date Smoking Tobacco: Never Passive Smoke Exposure: Never Smokeless Tobacco: Never Tobacco Cessation:Counseling Given: Not Answered Alcohol Use Standard Drinks/Week Comments Yes 0 (1 standard drink = 0.6 oz pur e alcohol) Rare occasions Depression Answer Date Recorded Patient Health Questionnaire-9 Score 0 05/14/2024 Patient Health Questionnaire-9 Score 0 05/14/2024 Last PHQ-9: Questionnaire Data Not on file 0 05/14/2024 Housing Stability Answer Date Recorded What is your housing situation today? I have real rosa 05/14/[address] you li ve. Do you have problems with any of the following? None of the above 05/14/2024 Food Insecurity Answer Date Recorded Within the past 12 months, y ou worried that your food would run out before you got money to buy more: Never True 05/14/2024 Within the past 12 months,th e food you bought just didn't last and you didn't have enough money to get more: Never True Transportation Answer Date Recorded In the past 12 months, has l ack of transportation kept you from medical appts, meetings, work or from getting things needed for daily living? No 05/14/2024 Utilities Answer Date Recorded In the past 12 months, has t he electric, gas, oil or water company threatened to shut off services in your home? No 05/14/2024 Depression Answer Date Recorded Patient Health Questionnaire-2 Score 0 05/14/2024 Internet Access Answer Date Recorded Internet Access Q1 Yes 05/14/2024 Internet Access Q2 Not on file 05/14/2024 Comments Unknown Sex and Gender Information Value Date Recorded Sex Assigned at Female 02/15/2022 10:14 AM EDT Legal Sex Female 10:14 AM EDT Gender Identity Female 02/15/2022 10:14 AM EDT Sexual Orientation Don't know 02/15/2022 10 :14 AM EDT Last Filed Vital Signs Vital Sign Reading Time Taken Comments Blood Pressure 124/86 10/17/2024 9:55 AM EDT Pulse 75 10/17/2024 9:55 AM EDT Temperature 36.1 C (96.9 F) 10/17/2024 9:55 AM EDT Respiratory Rate 20 10/17/2024 9:55 AM EDT Oxygen Saturation 98% 10/17/2024 9:55 AM EDT Inhaled Oxygen Concentration - - Weight 108 kg (238 lb 12.8 oz) 10/17/2024 9:55 A M EDT Height 160 cm (5' 3 ) 10/17/2024 9:55 AM EDT Body Mass Index 42.3 10/17/2024 9:55 AM EDT Plan of Treatment Upcoming Encounters Date Type Department Care Team (Late st Contact Info) Description 12/19/2024 9:45 AM EDT Office Visit [facility] MEDIC[facility] [address] [place] [address] Yessenia Looney, JIN [address] [place], [place] [phone] Health Maintenance Due Date Last Done Comments CT Colonography 1965 FIT DNA/Cologuard 1965 FIT 1965 FOBT 1965 Sigmoidoscopy 1965 Hepatitis B Vaccines (1 of 3 - 19+ 3-dose series) 1984 HPV/Cotest 10/02/1995 Pneumococcal Vaccine: 50+ Years (1 of 1 - PCV) 10/02/2015 Cervical Cancer Screening 11/26/2021 Pap Smear 11/26/2021 11/26/2020 Colonoscopy 09/24/2023 09/23/2020 Colorectal Cancer Screening 09/24/2023 COVID-19 Vaccine (3 - season) 2023 02/16/2021, 01/26/2021 Influenza Vaccine (#1) 2024 , 04/23/2022, 04/28/2021, Additional history exists DTaP/Tdap/Td Vaccines (2 - Td or Tdap) 01/02/2025 01/02/2015 Alcohol/Substance Use Screening 05/14/2025 05/14/2024 Depression Screening 05/14/2025 05/14/2024, 05/14/19 25 SDOH Screening 05/14/2025 05/14/2024 Mammogram 09/20/2025 09/20/2024, 06/0 06/2023, 09/10/2021, Additional history exists Disability Screening 10/17/2025 10/17/2024 Tobacco Screening 10/17/2025 10/17/2024 Lipid Panel 10/17/2029 10/17/2024, 08/0 08/2021, 07/23/2020 RSV Patients and Patients Aged 60 years or older (1 - 1-dose 75+ series) 2040 Zoster Vaccines Completed 09/16/2020, 07/15/2020 HIV Screening Completed 10/17/2024, 11/20/2021 Hepatitis C Screening Completed 10/17/2024, 021 HIB Vaccines Aged Out No longer eligi ble based on patient's age to complete this topic HPV Vaccines Aged Out No longer eligi ble based on patient's age to complete this topic Hepatitis A Vaccines Aged Out No long er eligible based on patient's age to complete this topic IPV Vaccines Aged Out No longer eligi ble based on patient's age to complete this topic Meningococcal B Vaccine Aged Out No l onger eligible based on patient's age to complete this topic Meningococcal Vaccine Aged Out No [place] eligible based on patient's age to complete this topic RSV under 20 months Aged Out No longe r eligible based on patient's age to complete this topic Rotavirus Vaccines Aged Out No longer eligible based on patient's age to complete this topic Procedures Procedure Name Priority Date/Time Associated Diagnosis Comments CHLAMYDIA/TRICHOMONAS/ NEISSERIA GONORRHOEAE, PCR, URINE Routine 10/17/2024 10:36 AM EDT MAGNESIUM Routine 10/17/2024 10:36 AM EDT Healthcare maintenance VITAMIN D,25-OH,TOTAL,IA Routine 10/17/2024 10:36 AM EDT Healthcare maintenance VITAMIN B12/FOLATE, SERUM PANEL Routine 10/17/2024 10:36 AM EDT Healthcare maintenance HIV 1/2 ANTIGEN/ANTIBODY, FOURTH GENERATION W/RFL Routine 10/17/2024 10:36 AM EDT Healthcare maintenance RPR (MONITOR) W/REFL TITER Routine 10/17/2024 10:36 AM EDT Healthcare maintenance HEPATITIS C VIRAL RNA, QUANTITATIVE, REAL-TIME PCR Routine 10/17/2024 10:36 AM EDT Healthcare maintenance CBC WITH AUTO DIFFERENTIAL Routine 10/17/2024 10:36 AM EDT Healthcare maintenance COMPREHENSIVE METABOLIC PANEL Routine 10/17/2024 10:36 AM EDT Healthcare maintenance TSH W/REFLEX TO FT4 Routine 10/17/2024 1 0:36 AM EDT Healthcare maintenance HEMOGLOBIN A1C Routine 10/17/2024 10:36 AM EDT Healthcare maintenance LIPID PANEL, STANDARD Routine 10/17/2024 10:36 AM EDT Healthcare maintenance ALBUMIN, RANDOM URINE W/CREATININE Routine 10/17/2024 10:36 AM EDT Healthcare maintenance BI MAMMOGRAM SCREENING TOMOSYNTHESIS BILATERAL Routine 09/20/2024 9:15 AM EDT THINPREP IMAGING SYSTEM PAP Routine 11/26/2020 7:26 AM EDT HM COLONOSCOPY Routine 09/23/2020 from Last 3 Months or Most Recently Relevant to Health Maintenance Results * Chlamydia/Trichomonas/Neisseria gonorrhoeae, PCR, Urine (10/17/2024 10:36 AM EDT) CT PCR, Urine NOT DETECTED Not Detect. [facility] Comment:A not detected test result does not exclude the possibilityof infection because test results can be affected byimproper specimen collection, concurrent antibiotic therapy,or the number of organisms in the specimen which may bebelow the sensitivity of the test. As with many diagnostictests, results from the Xpert CT/NG assay should beinterpreted in conjunction with other laboratory andclinical data available to the clinician.The Xpert CT/NG assay should not be used for the evaluationof suspected sexual abuse or for other medico-legalindications. Additional testing is recommended in anycircumstance when false positive or false negative resultscould lead to adverse medical, social or psychologicalconsequences. NG PCR, Urine NOT DETECTED Not Detect. [facility] Comment:A not detected test result does not exclude the possibilityof infection because test results can be affected byimproper specimen collection, concurrent antibiotic therapy,or the number of organisms in the specimen which may bebelow the sensitivity of the test. As with many diagnostictests, results from the Xpert CT/NG assay should beinterpreted in conjunction with other laboratory andclinical data available to the clinician.The Xpert CT/NG assay should not be used for the evaluationof suspected sexual abuse or for other medico-legalindications. Additional testing is recommended in anycircumstance when false positive or false negative resultscould lead to adverse medical, social or psychologicalconsequences. 10/17/2024 10:3 6 AM EDT 10/17/2024 11:13 AM EDT Yessenia Stoddardemil [facility] URINE ORDERABLES Final Res ult Performing Organization Address City/[facility]/ZIP Co de Phone Number [facility] [address] [place] [phone] * Vitamin D, 25-Hydroxy, Total, Immunoassay (10/17/2024 10:36 AM EDT) Vitamin D 25-OH Total 34.7 >30 ng/mL [facility] Comment: Health Based Reference Values*< 20 ng/mL Shlqmjxgz21-20 ng/mL Insufficient> 30 ng/mL Sufficient*Teresa BURGOS. N Engl J Med. 2007;357:266-280There is no well-established upper level of normal vitamin Dlevels. Some laboratories use 50 ng/mL as an upper limit ofnormal. However, toxicity is patient-dependent and may occurat any level. Careful correlation with the patient'spresentation is necessary and, if there is concern forvitamin D toxicity, treatment should be consideredirrespective of the serum level.Care must be taken in interpreting Vitamin D results fromdifferent laboratories and methodologies. Published datademonstrated that results from patients undergoinghemodialysis may show a negative bias when tested withvarious automated 25-OH vitamin D assays when compared toLC-MS/MS.When testing samples from patients whose predominant form ofVitamin D is Vitamin D2, such as patients receiving VitaminD2 supplementation, results that are subtherapeutic shouldbe confirmed with another method such as LC-MS/MS. Blood Venous blood specimen / Unknown 10/17/2024 10:36 AM EDT 10/17/2024 11:56 AM EDT Yessenia Looney [facility] BLOOD ORDERABLES Final Res ult Performing Organization Address [facility]/ZIP Co de Phone Number [facility] [address] [place] [phone] * Vitamin B12/Folate, Serum Panel (10/17/2024 10:36 AM EDT) Vitamin B12 646 200 - 900 pg/mL [facility] Comment:NORMAL 200-900 PG/ML INDETERMINATE 160-199 PG/ML DEFICIENT < 160 PG/ML Folate 14.6 > or = 4.0 ng/mL [facility] Comment:Reference Values:> o r = 4.0 ng/mL< 4.0 ng/mL suggests folate deficiency Methotrexate, aminopterin and folinic acid(leucovorin) are chemotherapeutic agents whose molecularstructures are similar to folate; therefore, the Architectfolate assay cannot be used for patients using these drugs. Blood Venous blood specimen / Unknown 10/17/2024 10:36 AM EDT 10/17/2024 11:56 AM EDT Yessenia Looney [facility] BLOOD ORDERABLES Final Res ult Performing Organization Address [facility] Co de Phone Number [facility] [address] [place] [address] [phone] * TSH with Reflex to Free T4 (10/17/2024 10:36 AM EDT) TSH reflex Free T4 1.04 0.32 - 4.0 uIU/mL [facility] Blood 10/17/2024 10:3 6 AM EDT 10/17/2024 11:56 AM EDT Yessenia Looney RN ASSESSMENT LAB BLOOD ORDERABLES Final Res ult Performing Organization Address [facility] Co de Phone Number [facility] [address] [place] [phone] * Hepatitis C Viral RNA, Quantitative, Real-Time PCR (10/17/2024 10:36 AM EDT) Hepatitis C Viral Load <15 NOT DETECTED NOT DETECTED IU/mL [facility] HCV Log PCR <1.18 NOT DETECTED NOT DETECTED Log IU/mL [facility] Comment:For additional infor jim, please refer [email or web address].[employer]/faq/FMP09r7(This link is being provided for informational/educational purposes only.)THIS TEST WAS PERFORMED AT:[employer] [place] [phone] MC MD Blood 10/17/2024 10:3 6 AM EDT 10/17/2024 11:51 AM EDT Yessenia Looney RN ASSESSMENT LAB BLOOD ORDERABLES Final Res ult Performing Organization Address [facility]/ZIP Co de Phone Number [facility] [address] [place] [phone] * Albumin, Random Urine W/Creatinine (10/17/2024 10:36 AM EDT) Creatinine, Urine 65.64 mg/dL [facility] Microalbumin Urine <5.0 mg/L [facility] Microalbum Creatinine Ratio Ur TNP <30 ug/mg cr [facility] Comment:Unable to calculate albumin/creatinine ratio due to lowmicroalbumin or creatinine result. Urine 10/17/2024 10:3 6 AM EDT 10/17/2024 11:01 AM EDT Yessenia Looney RN ASSESSMENT LAB URINE ORDERABLES Final Res ult Performing Organization Address [facility] de Phone Number [facility] [address] [place] [phone] * (ABNORMAL) CBC auto differential (10/17/2024 10:36 AM EDT) White Blood Count 10.4 4.8 - 10.8 X10*3/uL [facility] Red Blood Count 4.62 4.20 - 5.50 X10*6/uL [facility] Hemoglobin 14.1 12.0 - 16.0 g/dl [facility] Hematocrit 42.4 37.0 - 47.0 % [facility] Mean Corpuscular Volume 91.8 80.0 - 98.0 fL [facility] Mean Corpuscular Hemoglobin 30.5 27.0 - 33.0 pg [facility] Mean Corpuscular HGB Conc 33.3 31.0 - 35.0 g/dl [facility] Red Cell Distribution Width 13.6 11.0 - 16.0 % [facility] Platelet Count 344 160 - 400 X10*3/uL [facility] Mean Platelet Volume 10.4 9.4 - 12.3 fL [facility] Neutrophils Percent Auto 63.3 45 - 73 % [facility] Imm Gran Pct Auto 0.8(H) 0.0 - 0.4 % [facility] Lymphocytes Percent Auto 28.8 20 - 40 % [facility] Monocytes Percent Auto 6.2 2 - 11 % [facility] Eosinophils Percent Auto 0.6 0 - 4 % [facility] Basophils Percent Auto 0.3 0 - 2 % [facility] NRBC Pct Auto 0.0 0.0 - 0.2 /100WBC [facility] Neutrophils Absolute Auto 6.6 2.0 - 8.3 x10*3/uL [facility] Imm Gran Abs Auto 0.08(H) 0.00 - 0.03 X10*3/uL [facility] Lymphocytes Absolute Auto 3.0 1.2 - 4.9 X10*3/uL [facility] Monocytes Absolute Auto 0.6 0.1 - 1.2 X10*3/uL [facility] Eosinophils Absolute Auto 0.1 0.0 - 0.4 X10*3/uL [facility] Basophils Absolute Auto 0.0 0.0 - 0.2 X10*3/uL [facility] NRBC Abs Auto 0.000 0.0 - 0.012 X10*3/uL [facility] Blood Venous blood specimen / Unknown 10/17/2024 10:36 AM EDT 10/17/2024 11:22 AM EDT us Yesseina Looney RN ASSESSMENT LAB BLOOD ORDERABLES Final Res ult [facility] [address] [place] [phone] * RPR (Monitor) with Reflex to??Titer (10/17/2024 10:36 AM EDT) RPR (Monitor) w/Refl Titer NON-REACTI VE NON-REACT DREA [facility] Comment:THIS TEST WAS PERFOR MED AT:[employer] [place] [phone] MC MD Rapid Plasma Reagin Ab Titer TNP [facility] Blood Venous blood specimen / Unknown 10/17/2024 10:36 AM EDT 10/17/2024 11:51 AM EDT Yessenia Looney RN ASSESSMENT LAB BLOOD ORDERABLES Final Res ult [facility] [address] [place] [phone] * HIV-1/2 Antigen and Antibodies, Fourth Generation, with Reflexes (10/17/2024 10:36 AM EDT) HIV AB/AG Nonreactive Nonreactive [facility] Comment:HIV-1 p24 Ag and/or HIV-1/HIV-2 Ab not detected.A test result that is nonreactive does not exclude thepossibility of exposure to or infection with HIV-1 and/orHIV-2. Nonreactive results in this assay for individualswith prior exposure to HIV-1 and/or HIV-2 may be due toantigen and antibody levels that are below the limit ofdetection of this assay.The [employer] HIV Ag/Ab Combo assay result andsupplemental assay results should be interpreted inconjunction with the patient's clinical presentation,history and other laboratory results. If the results areinconsistent with clinical evidence, additional testing issuggested to confirm the result. Blood Venous blood specimen / Unknown 10/17/2024 10:36 AM EDT 10/17/2024 11:56 AM EDT Yessenia Looney RN ASSESSMENT LAB BLOOD ORDERABLES Final Res ult Performing Organization Address [facility]/ZIP Co de Phone Number [facility] [address] [place] [phone] * Magnesium (10/17/2024 10:36 AM EDT) Magnesium 2.1 1.6 - 2.6 mg/dL [facility] Blood Venous blood specimen / Unknown 10/17/2024 10:36 AM EDT 10/17/2024 11:56 AM EDT Yessenia Looney RN ASSESSMENT LAB BLOOD ORDERABLES Final Res ult Performing Organization Address [facility] de Phone Number [facility] [address] [place] [phone] * Hemoglobin A1c (10/17/2024 10:36 AM EDT) Hemoglobin A1c 5.6 <6.0 % [facility] Comment:Hemoglobin A1C Refer ence Range Adults: 4.8 - 6.0 % Non diabetic: < 6.0 % Goal: < 7.0 %Additional Action Suggested: > 8.0 %Note: Hemoglobin A1c results are invalid for patients with abnormal amounts of HbF. Blood transfusions may impact the HbA1c concentration in the patient sample. Estimated Average Glucose 114 mg/dL [facility] Comment:eAG = Estimated ave rage glucose which is %A1C expressed asaverage glucose, using the formula of the [id number] Glucose study (ADAG), Diabetes Care, Vol.31,#8,Nov. 2007 Blood Venous blood specimen / Unknown 10/17/2024 10:36 AM EDT 10/17/2024 11:22 AM EDT Yessenia Looney RN ASSESSMENT LAB BLOOD ORDERABLES Final Res ult Performing Organization Address [facility] Co de Phone Number [facility] [address] [place] [phone] * (ABNORMAL) Lipid Panel, Standard (10/17/2024 10:36 AM EDT) Triglycerides 99 <150 mg/dL [facility] Comment:Desirable Triglyceri de: less than 150 mg/dLBorderline High Triglyceride 150-199 mg/dLHigh Triglyceride: 200-499 mg/dLVery High Triglyceride: greater than or equal to 5OO mg/dL Cholesterol 231(H) <200 mg/dL [facility] Comment:Desirable Cholestero l: less than 200 mg/dLBorderline High Cholesterol: 200-239 mg/dLHigh Cholesterol: greater than 239 mg/dL LDL Cholesterol Calculated 156(H) <100 mg/dL [facility] Comment:Desirable LDL: less than 100 mg/dLNear Optimal/Above Optimal LDL: 110- 129 mg/dLBorderline High LDL: 130-159 mg/dLHigh LDL: 160-189 mg/dLVery High LDL: greater than or equal to 190 mg/dL HDL Cholesterol 56 >40 mg/dL [facility] Comment:Desirable HDL: great er than 40 mg/dL Note: This HDL assay may give artificially low results in patients with liver disease. Blood Venous blood specimen / Unknown 10/17/2024 10:36 AM EDT 10/17/2024 11:56 AM EDT us Yessenia Looney RN ASSESSMENT LAB BLOOD ORDERABLES Final Res ult [facility] [address] [place] [address] [phone] * (ABNORMAL) Comprehensive Metabolic Panel (10/17/2024 10:36 AM EDT) Sodium 140 135 - 145 mmol/L [facility] Potassium 3.7 3.3 - 5.1 mmol/L [facility] Chloride 104 96 - 108 mmol/L [facility] Carbon Dioxide 29 22 - 29 mmol/L [facility] Anion Gap 11(L) 12 - 20 [facility] Urea Nitrogen (BUN) 14 9 - 16 mg/dL [facility] Creatinine, Serum 0.82 0.5 - 1.4 mg/dL [facility] Estimated Glomerular Filt Rate >60 [facility] Comment:Chronic Kidney Disea se: Estimated GFR < 60 mL/min/1.76d3Crlebh Kidney Disease: Estimated GFR < 15 mL/min/1.73m2 Glucose 86 60 - 115 mg/dL [facility] Calcium 9.5 8.4 - 10.2 mg/dL [facility] Bilirubin, Total 0.6 0.0 - 1.0 mg/dL [facility] Aspartate Amino Transferase 27 5 - 31 U/L [facility] Alanine Aminotransferase 33(H) 0 - 31 U/L [facility] Total Protein 7.1 6.5 - 8.0 g/dL [facility] Albumin Level 4.3 3.5 - 5.0 g/dL [facility] Alkaline Phosphatase 106 39 - 117 U/L [facility] Blood Venous blood specimen / Unknown 10/17/2024 10:36 AM EDT 10/17/2024 11:56 AM EDT us Yessenia ABDI LAB BLOOD ORDERABLES Final Res ult [facility] [address] [place] [address] [phone] * BI Mammogram Screening Tomosynthesis Bilateral (09/20/2024 9:15 AM EDT) Anatomical Region Laterality Modality Breast Bilateral Mammography 09/20/2024 9:15 AM EDT Narrative 09/24/2024 1:04 PM EDT [facility] [address] [place] [address] Mammography Report Signed Patient: Radha Farmer MR#: [id number] : 1965 Acct:[id number] Age/Sex: 58 / F ADM Date: 09/20/24 Loc: HO.MAMMO Attending Dr: Yessenia ABDI Ordering Physician: Yessenia Looney Results: 1Negat drea Date of Service: 09/20/24 Follow Up: 1 Year From Orig inal Mammogram Procedure(s): MM tomosynthesis screening BI Accession Number(s): [id number] cc: Yessenia Looney EXAMINATION: MM SCREENING DIGITAL BREAST TOMOSYNTHESIS, BILATERAL CLINICAL INFORMATION: Screening. Asymptomatic. COMPARISON: Mammography: Comparison is made with available priors TECHNIQUE: Digital breast mammography with tomosynthesis is performed in both the craniocaudal and mediolateral oblique views along with computer-aided detection (CAD). FINDINGS: There are scattered areas of fibroglandular density (ACR BI-RADS breast composition Category b). There are no significant masses, abnormal calcifications, or other abnormalities. MM/MM tomosynthesis screening BI IMPRESSION: No mammographic evidence of malignancy. ASSESSMENT: BI-RADS BI-RADS 1 - Negative RECOMMENDATION: Routine annual mammography screening. 1 year F/U This examination should not preclude the clinical evaluation of a suspicious palpable abnormality. This patient's information was entered into a reminder system with a target due date for their next mammogram. Electronically signed by: Pamela Zavala DO 09/24/2024 01:01 PM EDT RP Dictated By: Pamela Zavala DO Signed By: <Electronically signed by Pamela Zavala DO in OV> 09/24/24 1301 DD/ 0915 TD/TT: 09/20/24 0931 Race Relations Professor: Procedure Note Donotuseinterpreter, Image - 09/24/2024 [facility] [address] [place] [address] [place] [address] Mammography Report Signed Patient: Radha FarmerMR#: [id number] : 1965Acct:[id number] Age/Sex: 58 / FADM Date: 09/20/24 Loc: HO.MAMMO Attending Dr: Yessenia ABDI Ordering Physician: Yessenia LooneyPResults: 1Negat drea Date of Service: 09/20/24Follow Up: 1 Year From Orig inal Mammogram Procedure(s): MM tomosynthesis screening BI Accession Number(s): [id number] cc: Yessenia Looney EXAMINATION: MM SCREENING DIGITAL BREAST TOMOSYNTHESIS, BILATERAL CLINICAL INFORMATION: Screening. Asymptomatic. COMPARISON: Mammography: Comparison is made with available priors TECHNIQUE: Digital breast mammography with tomosynthesis is performed in both the craniocaudal and mediolateral oblique views along with computer-aided detection (CAD). FINDINGS: There are scattered areas of fibroglandular density (ACR BI-RADS breast composition Category b). There are no significant masses, abnormal calcifications, or other abnormalities. MM/MM tomosynthesis screening BI IMPRESSION: No mammographic evidence of malignancy. ASSESSMENT: BI-RADS BI-RADS 1 - Negative RECOMMENDATION: Routine annual mammography screening. 1 year F/U This examination should not preclude the clinical evaluation of a suspicious palpable abnormality. This patient's information was entered into a reminder system with a target due date for their next mammogram. Electronically signed by: Pamela Zavala DO 09/24/2024 01:01 PM EDT Dictated By: Pamela Zavala DO Signed By: <Electronically signed by Pamela Zavala DO in OV> 09/24/24 1301 DD/ 0915 TD/TT: 09/20/24 0931 Race Relations Professor: Yessenia Looney RN ASSESSMENT IMG BI PROCEDURES Edited Resul t - Final * (ABNORMAL) THINPREP TIS PAP (11/26/2020 7:26 AM EDT) Clinical Information: None given [facility] COMMENT SEE COMMENT [facility] Comment: EXPLANATORY NOTE: The Pap is a screening test for cervical cancer. It is not a diagnostic test and is subject to false negative and false positive results. It is most reliable when a satisfactory sample, regularly obtained, is submitted with relevant clinical findings and history, and when the Pap result is evaluated along with historic and current clinical information. NO COLLECTION DATE RECEIVED. WE HAVE USED THE DATE THE SPECIMEN WAS RECEIVED BY THIS LABORATORY THE COLLECTION DATE. IF THIS IS INCORRECT, PLEASE CONTACT CLIENT SERVICES. PHONE NUMBER: COMMENT: This Pap test has been evaluated with computer assisted technology. [facility] E Commerce Manager : SEE COMMENT [facility] Comment: KN, CT(ASCP) CT screening location: [place] [address] General Categorization: EPITHELIAL CELL ABNORMALITY(A) [facility] Interpretation/R esult: Atypical Squamous Cells of Undetermined Significance (ASC-US)(A) [facility] LMP: NONE GIVEN [facility] PATHOLOGIST: SEE COMMENT [facility] Comment: Michele Hinson M.D. Direct , Board Certified in Anatomic and Clinical Pathology and Cytopathology (electronic signature) Consulting Pathologist [facility] [address] [place] [phone] Prev. BX: NONE [facility]IVEN [facility] Prev. PAP: NONE [facility]IV[facility] SOURCE: None given [facility] Statement Of Adequacy: SEE COMMENT [facility] Comment: Satisfactory for evaluation. Endocervical/transformation zone component present. Age and/or menstrual status not provided 11/26/2020 7:26 AM EDT Historical Provider MD LAB PATHOLOGY ORDERABLES Final Result [facility] [address] * Colonoscopy (09/23/2020) Colonoscopy Normal Normal Narrative Tita Lopez - 09/23/2020 Recommended 3 year follow up Historical Provider HEALTH MAINTENANCE Edited Result - Final from Last 3 Months or Most Recently Relevant to Health Maintenance Insurance HSN [facility] Care Teams Seed Potato Cutter Relationship Specialty Start Date End Date Yessenia Looney FNP [address] [place] [phone] PCP - General Family Medicine 12/09/21
--- OUTSIDE RECORDS SUMMARY | 2024-12-14 14:43 | XMS_ITS | Encounter Summary ---
Author Organization [employer] Address [address] [facility] 7[address] [place] [address] Care Team Providers Care Senior Safety Management Consultant Name Role Phone Yessenia Looney Primary Care Provider [phone] Reason for Visit * Reason Onset Date Comments Appointment Request 09/13/2023 Encounter Details Date Type Department Care Team ([facility] st Contact Info) Description 09/13/2023 Telephone [facility] [address] [place] [address] Yessenia Looney FNP [address] [place] [address] Appointment Request Social History Tobacco Use Types [...] pt had a punctual stenosis done with [facility] and was advised bu surgeon to follow up with pcp. Please contact pt at [phone] documented in this encounter Plan of Treatment Upcoming Encounters Date Type Department Care Team (Late st Contact Info) Description 12/19/2024 9:45 AM EDT Office Visit [facility] [address] [place] [address] Yessenia Looney FNP [address] [place] [address] documented as of this encounter Visit Diagnoses Not on filedocumented in this encounter Additional Health Concerns Assessment Noted Time PHQ-9 Depression Total Score: 1 10/29/19 23 8:49 AM EDT documented as of this encounter Care Teams Senior Safety Management Consultant Relationship Specialty Start Date End Date Yessenia Looney FNP [address] [place] [address] PCP - General Family Medicine 12/09/21 documented as of this encounter
--- NOTE | 2024-12-14 14:44 | EMG_ITS ---
Chief complaint: Bilateral thumb numbness, right foot numbness, right arm pain, chronic lower back pain Reason for referral: Evaluate for Carpal Tunnel Syndrome, neuropathy Referred by: Yessenia Looney NP Procedure done: Bilateral upper and lower extremities NCS/EMG Precautions and/or limitations: Poor tolerance of needle The limb temperature was monitored continuously and remained between 32-36 degrees C during the performance of the NCS. Nerve Conduction Studies Anti Sensory Summary Table ?Stim Site NR Onset (ms) Norm Onset (ms) Peak (ms) Norm Peak (ms) O-P Amp (?V) Norm O-P Amp Site1 Site2 Delta-0 (ms) Dist (cm) Sonny (m/s) Norm Sonny (m/s) Left Median Anti Sensory (2nd Digit) Wrist NR <3.6 >10 Wrist 2nd Digit 14.0 Right Median Anti Sensory (2nd Digit) Wrist NR <3.6 >10 Wrist 2nd Digit 14.0 Left Radial Anti Sensory (Thumb) Forearm ? 1.8 2.3 <3.1 31.6 Forearm Thumb 1.8 0.0 Right Radial Anti Sensory (Thumb) Forearm ? 2.1 2.4 <3.1 15.6 Forearm Thumb 2.1 0.0 Left Sural Anti Sensory (Lat Mall) Calf ? 3.6 4.2 <4.0 7.2 >5.0 Calf Lat Mall 3.6 14.0 39 Right Sural Anti Sensory (Lat Mall) Calf ? 3.6 4.3 <4.0 8.1 >5.0 Calf Lat Mall 3.6 14.0 39 Site 2 ? 3.8 4.6 14.4 Left Ulnar Anti Sensory (5th Digit) Wrist ? 2.4 3.3 <3.7 27.3 >15.0 Wrist 5th Digit 2.4 14.0 58 Right Ulnar Anti Sensory (5th Digit) Wrist ? 2.4 3.3 <3.7 38.7 >15.0 Wrist 5th Digit 2.4 14.0 58 Motor Summary Table ?Stim Site NR Onset (ms) Norm Onset (ms) O-P Amp (mV) Norm O-P Amp iAmp (mV) Amp (1st) (%) Site1 Site2 Delta-0 (ms) Dist (cm) Sonny (m/s) Norm Sonny (m/s) Left Median Motor (Abd Poll Brev) Wrist ? 6.1 <3.9 10.8 >4.5 12.7 100.0 Elbow Wrist 3.6 18.5 51 >45 Elbow ? 9.7 10.3 12.3 95.4 Right Median Motor (Abd Poll Brev) Wrist ? 6.7 <3.9 7.9 >4.5 9.4 100.0 Elbow Wrist 4.4 21.5 49 >45 Elbow ? 11.1 9.0 10.8 113.9 Right Peroneal Motor (Ext Dig Brev) Ankle ? 5.6 <4.0 6.7 >2.5 7.4 100.0 Ankle Ext Dig Brev 5.6 0.0 B Fib ? 12.2 6.4 7.2 95.5 B Fib Ankle 6.6 31.5 48 >40 Poplt ? 13.0 6.4 7.1 95.5 Poplt B Fib 0.8 4.0 50 >40 Right Tibial Motor (Abd Lo Brev) Ankle ? 4.5 <5 10.5 >2.5 13.9 100.0 Ankle Abd Lo Brev 4.5 0.0 Knee ? 12.8 5.4 7.3 51.4 Knee Ankle 8.3 38.0 46 >40 Left Ulnar Motor (Abd Dig Minimi) Wrist ? 2.9 <3.0 5.6 >5 7.8 100.0 B Elbow Wrist 3.1 18.5 60 >45 B Elbow ? 6.0 5.6 7.9 100.0 A Elbow B Elbow 1.5 10.0 67 >45 A Elbow ? 7.5 5.4 7.7 96.4 Right Ulnar Motor (Abd Dig Minimi) Wrist ? 2.9 <3.0 8.1 >5 10.8 100.0 B Elbow Wrist 3.3 19.0 58 >45 B Elbow ? 6.2 7.1 9.6 87.7 A Elbow B Elbow 1.1 10.0 91 >45 A Elbow ? 7.3 7.5 10.3 92.6 EMG ?Side Muscle Nerve Root Ins Act Fibs Psw Amp Dur Poly Recrt Int Pat Comment Right 1stDorInt Ulnar C8-T1 Nml Nml Nml Nml Nml 0 Nml Complete Right FlexCarRad Median C6-7 Nml Nml Nml Nml Nml 0 Nml Complete Right FlexCarpiUln Ulnar C8,T1 Nml Nml Nml Nml Nml 0 Nml Complete Right Biceps Musculocut C5-6 Nml Nml Nml Nml Nml 0 Nml Complete Right Triceps Radial C6-7-8 Nml Nml Nml Nml Nml 0 Nml Complete Right Deltoid Axillary C5-6 Nml Nml Nml Nml Nml 0 Nml Complete Right AbdHallucis MedPlantar S1-2 Nml Nml Nml Nml Nml 0 Nml Complete Right AntTibialis Dp Br Peron L4-5 Nml Nml Nml Nml Nml 0 Nml Complete Right PostTibialis Tibial L5, S1 Nml Nml Nml Nml Nml 0 Nml Complete Right MedGastroc Tibial S1-2 Nml Nml Nml Nml Nml 0 Nml Complete Right VastusMed Femoral L2-4 Nml Nml Nml Nml Nml 0 Nml Complete Paraspinal EMG ?Side Muscle Nerve Root Ins Act Fibs Psw Comment Right Lumbar Upper Rami Nml Nml Nml Right Lumbar Mid Rami Nml Nml Nml Right Lumbar Lower Rami Nml Nml Nml FINDINGS: Bilateral median motor nerves showed prolonged distal latency, normal amplitude and normal conduction velocity. Bilateral median sensory nerves showed absent response. Right peroneal nerve showed prolonged distal latencies, normal amplitude and normal conduction velocity. Bilateral sural nerves showed prolonged peak latencies. All other nerves tested were within normal. Concentric needle EMG was performed in selected muscles of the right upper and lower extremities, lumbar paraspinals. Study did not reveal signs of electric abnormalities as shown in the table above. IMPRESSION: 1. This is an abnormal study. 2. There is electrodiagnostic evidence for bilateral moderate-severe median neuropathy at the wrist, consistent with Carpal Tunnel Syndrome. 3. There is electrodiagnostic evidence suggestive of beginning peripheral neuropathy. 4. There is no electrodiagnostic evidence for ulnar neuropathy, brachial plexopathy, cervical radiculopathy, tibial neuropathy, lumbosacral plexopathy, or lumbar radiculopathy. Thank you for your kind referral. Eusebia Kaur MD, YVONNE Board Certified, [place] Board [employer] Physical [employer] and Rehabilitation (ABPMR) Board Certified, [place] Board of Electrodiagnostic Medicine (ABEM) CODIN [address] x 2 MTDD
== END 2024-12-14 14:41 | disposition home or self-care (01) ==
LOC: HO.NEURO 14:40
PROVIDERS: PCP Registered Nurse; Visit Provider Registered Nurse
DX: R20.0 Anesthesia of skin (principal); R20.2 Paresthesia of skin
CPT/HCPCS: 95886; 95913

== ENCOUNTER → 2024-12-14 14:44 | Outpatient (BNV) | payer OTHER, SELFPAY | PROVIDERS: PCP Registered Nurse; Visit Provider Physical Medicine & Rehabilitation | DX: G56.83 Other specified mononeuropathies of bilateral upper limbs (principal) | CPT/HCPCS: 95886; 95913 ==

== ENCOUNTER 2025-02-05 18:18 | Outpatient (REF) | payer OTHER, SELFPAY ==
--- OUTSIDE RECORDS SUMMARY | 2025-02-05 09:30 | XMS_ITS | Encounter Summary ---
Author Organization [employer] Address [address] [place] [address] [address] [place] [address] Care Team Providers Care Waistline Joiner Lockstitch Name Role Phone RichiYessenia stein JIN Primary Care Provider [phone] Reason for Visit * Reason Comments pap Encounter Details Date Type Department Care Team (Latest Contact Info) Description 02/05/2025 9:30 AM EDT Procedure Visit [facility] [address] [place] [address] Romana Mcintosh CNM [address] [place] [address] Atypical squamous cells of undetermined significance (ASCUS) on Papanicolaou smear of cervix (Primary Dx) Social History Tobacco Use Types Packs/Day Years Used Date Smoking Tobacco: Never Passive Smoke Exposure: Never Smokeless Tobacco: Never Tobacco Cessation:Counseling Given: Not Answered Alcohol Use Standard Drinks/Week Comments Not Currently 0 (1 standard drink = 0.6 oz [...] Access Q2 Not on file 05/14/2024 Comments No Sex and Gender Information Value Date Recorded Sex Assigned at Female 02/15/2022 10:14 AM EDT Legal Sex Female 10:14 AM EDT Gender Identity Female 02/15/2022 10:14 AM EDT Sexual Orientation Don't know 02/15/2022 10 :14 AM EDT documented as of this encounter Last Filed Vital Signs Vital Sign Reading Time Taken Comments Blood Pressure 130/82 02/05/2025 9:32 AM EDT Pulse 66 02/05/2025 9:32 AM EDT Temperature 36.3 C (97.3 F) 02/05/2025 9:32 AM EDT Respiratory Rate 14 02/05/2025 9:32 AM EDT Oxygen Saturation 99% 02/05/2025 9:32 AM EDT Inhaled Oxygen Concentration - - Weight 106 kg (234 lb 9.6 oz) 02/05/2025 9:32 AM EDT Height - - Body Mass Index 41.56 10/17/2024 9:55 AM EDT documented in this encounter Progress Notes * Romana Mcintosh CNM - 02/05/2025 9:30 AM EDT Subjective Patient ID: Radha Farmer is a 59 y.o. female who presents for pap ASCUS pap 11/2020, no further testing on file. Mammogram BIRADS 1, cat b 09/2024. 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 Onset of menopause around 50 or 51 years old and no vaginal bleeding since Sexually active- not sexually active; no concerns of STI Lives with her son with no safety concerns, she is a for 19 years No vasomotor symptoms Age of last period- [age] years No postmenopausal bleeding. No hip fracture or other fracture. Reports a fall in 2020 and recent one in 2024 due to the arthritis of right knee; however, no fracture. Changes in breast exam- reports she does not perform self-breast examinations. Would like breast and pelvic exam today. Review of Systems Genitourinary: Negative for decreased urine volume, difficulty urinating, dyspareunia, dysuria, flank pain, frequency, genital sores, hematuria, menstrual problem, pelvic pain, urgency, vaginal bleeding, vaginal discharge and vaginal pain. No abnormal bleeding, no breast pain, no breast mass, no nipple discharge Objective BP 130/82 (BP Location: Left arm, Patient Position: Sitting, BP Cuff Size: Adult) Pulse 66 Temp97.3 ??F (36.3 ??C) (Oral) Resp 14 Wt 234 lb 9.6 oz (106 kg) SpO2 99% BMI 41.56 kg/m?? Physical Exam Exam conducted with a supervisor laboratory present (Romana Mcintosh CNM). Chest: Breasts: Right: Normal. No swelling, bleeding, inverted nipple, mass, nipple discharge, skin change or tenderness. Left: Normal. No swelling, bleeding, inverted nipple, mass, nipple discharge, skin change or tenderness. Genitourinary: General: Normal vulva. Exam position: Supine. Pubic Area: No rash. Labia: Right: No rash, tenderness or lesion. Left: No rash, tenderness or lesion. Urethra: No prolapse, urethral pain or urethral swelling. Vagina: Normal. No vaginal discharge, erythema, tenderness, bleeding or lesions. Cervix: Normal. No cervical motion tenderness, discharge, friability, lesion, erythema or cervical bleeding. Uterus: Normal. Not enlarged and not tender. Adnexa: Right adnexa normal and left adnexa normal. Right: No mass, tenderness or fullness. Left: No mass, tenderness or fullness. Comments: Ovaries non palpable bilaterally Lymphadenopathy: Upper Body: Right upper body: No supraclavicular or axillary adenopathy. Left upper body: No supraclavicular or axillary adenopathy. Assessment/Plan Diagnoses and all orders for this visit: Atypical squamous cells of undetermined significance (ASCUS) on Papanicolaou smear of cervix - Pap Smear Encouraged to report any abnormal bleeding post the pap tests. PAP examination tolerated well Will plan for a one year DESKTOP ARCHITECT visit and PAP in 5 years, if the results are normal- she was informed of this and in agreement with the plan. Routine mammography. BMD at 65, sooner if new risk factors. [facility] SOLUTIONS EXECUTIVE SECURITY Attestation SOLUTIONS EXEC[employer]IVE SECURITY Resident Attestation: Patient was seen and evaluated by Theo ABDI, in collaboration with Romana Mcintosh CNMwho has reviewed my assessment and plan. I, Romana Mcintosh CNM , have reviewed the resident's note and agree with the assessment & plan of care as documented above. documented in this encounter Plan of Treatment Scheduled Orders Name Type Priority Associated Diagnoses Orde r Schedule Pap Smear Pathology and Cytology Routine Atypical squamous cells of undetermined significance (ASCUS) on Papanicolaou smear of cervix Ordered: 02/05/2025 documented as of this encounter Visit Diagnoses Diagnosis Atypical squamous cells of undetermined significance (ASCUS) on Papanicolaou smear of cervix- Primary documented in this encounter Additional Health Concerns Assessment Noted Time PHQ-9 Depression Total Score: 0 05/14/19 25 10:40 AM EST documented as of this encounter Care Teams Waistline Joiner Lockstitch Relationship Specialty Start Date End Date Yessenia Looney FNP [address] [place] [address] PCP - General Family Medicine 12/09/21 documented as of this encounter
--- OUTSIDE RECORDS SUMMARY | 2025-02-05 21:21 | XMS_ITS | Encounter Summary ---
Author Organization [employer] Address [address] [place] [address] Care Team Providers Care Regional Vice President Life Sales Name Role Phone Yessenia Looney JIN Primary Care Provider [phone] Encounter Details Date Type Department Care Team ([facility] st Contact Info) Description 03/03/2023 Abstract [facility] [address] [place] [address] Ngoc Shepherd Social History Tobacco Use Types [...] as of this encounter Plan of Treatment Not on file documented as of this encounter Procedures Procedure Name Priority Date/Time Associated Diagnosis Comments COLONOSCOPY Routine 09/23/2020 documented in this encounter Results * Hm Colonoscopy (09/23/2020) Colonoscopy Normal Normal Narrative Tita Lopez - 09/23/2020 Recommended 3 year follow up us Historical Provider HEALTH MAINTENANCE Edited Result - Final documented in this encounter Visit Diagnoses Not on filedocumented in this encounter Additional Health Concerns Assessment Noted Time PHQ-9 Depression Total Score: 1 10/29/19 23 8:49 AM EDT documented as of this encounter Care Teams Regional Vice President Life Sales Relationship Specialty Start Date End Date Yessenia Looney FNP [address] [place] [phone] PCP - General Family Medicine 12/09/21 documented as of this encounter
--- OUTSIDE RECORDS SUMMARY | 2025-02-05 21:21 | XMS_ITS | Encounter Summary ---
Author Organization [employer] Address [address] [place] [address] 7[address] [place] [address] Care Team Providers Care Wire Charger Name Role Phone Yessenia Looney Primary Care Provider [phone] Reason for Visit * Reason Onset Date Comments chart prep 02/04/2025 Encounter Details Date Type Department Care Team ([facility] Contact Info) Description 02/04/2025 Telephone [facility] [address] [place] [address] Romana Mcintosh, SONAL [address] [place] [address] chart prep Social History Tobacco Use Types Packs/Day Years Used Date Smoking Tobacco: Never Passive Smoke Exposure: Never Smokeless Tobacco: Never Alcohol Use Standard [...] encounter Miscellaneous Notes * Telephone Encounter - Solomon Mao MA - 02/04/2025 9:38 AM EDT Chart Prep Labs: done Images: done Referrals: not applicable Vaccines due: Covid, Flu, PCV20, and Hep B Screenings: colonoscopy and pap smear Overdue care gaps: Not applicable documented in this encounter Plan of Treatment Not on file documented as of this encounter Visit Diagnoses Not on filedocumented in this encounter Additional Health Concerns Assessment Noted Time PHQ-9 Depression Total Score: 0 05/14/19 25 10:40 AM EST documented as of this encounter Care Teams Wire Charger Relationship Specialty Start Date End Date Yessenia Looney FNP [address] [place] [address] PCP - General Family Medicine 12/09/21 documented as of this encounter
--- OUTSIDE RECORDS SUMMARY | 2025-02-05 21:21 | XMS_ITS | Clinical Summary ---
Author Organization [employer] Address [address] [place] [address] 7[address] [place] [address] Care Team Providers Care Gre Tutor Name Role Phone Richiemil Yessenia ABDI Primary Care Provider [phone] Allergies No known active allergies Medications Blood [...] Active Problems Problem Noted Date Diagnosed Date Pure hypercholesterolemia 12/20/2024 Overview (12/20/2024): Lab Results Component Value Date CHOL 231 (H) 10/17/2024 TRIG 99 10/17/2024 HDL 56 10/17/2024 LDLCHOLCAL 156 (H) 10/17/2024 -continue lifestyle modification -ASCVD risk < 7.5% October 2024 Median neuropathy of both upper extremities 07/2024 Overview (12/20/2024): EMG/NCS completed 12/14/24 demonstrating bilateral moderate-severe median neuropathy at the wrist, consistent with Carpal Tunnel Syndrome. Assessment & Plan (12/20/2024 8:54 AM EDT): Reviewed tx options. Denies pain. Reports most bothersome symptoms are numbness/tingling. Given additional findings of evidence suggestive of beginning peripheral neuropathy, will initially refer to Neuro for further evaluation. Peripheral neuropathy 12/20/2024 Overview (12/20/2024): 12/14/24: EMG/NCS ordered BUE/BLE. There is electrodiagnostic evidence for bilateral moderate-severe median neuropathy at the wrist, consistent with Carpal Tunnel Syndrome. There is electrodiagnostic evidence suggestive of beginning peripheral neuropathy. Assessment & Plan (12/20/2024 8:56 AM EDT): - Given clinical presentation and previous hx of Mullen palsy, referral to Neuro placed for further evaluation. Lab workup thus far including magnesium, Vit D, Vit B12/folic acid, TSH, A1c, RPR wnl in October 2024. Return precautions reviewed. Pain 05/15/2024 Assessment & Plan (05/15/2024 7:23 PM EST): Area of tenderness to the base of neck and lower right trapezius muscle Plan Take Naprosyn 500 mg twice daily as needed Diclofenac sodium 1% gel - apply to tender area prn Healthcare maintenance 10/28/2022 Overview (12/20/2024): Colonoscopy: 09/23/20. 3 polyps removed and noted moderate diverticulosis in the left colon. Repeat in 3 year. Referred to [facility] GI on 12/20/24 Mammo: 09/20/24: BIRADS 1 Pap: due. Encouraged to schedule. Osteoarthritis of both knees 07/29/2022 Overview (08/04/2023): -XR 07/08/21: IMPRESSION: Mild degenerative changes. No fracture or dislocation. -Continues with APAP PRN, trial nabumetone BID PRN -Eval by [facility] Ortho Feb 2023 Assessment & Plan (08/04/2023 10:33 AM EDT): Discussed evidence and consideration of turmeric for arthritis (pt already using in her cooking) Assessment & Plan (10/31/2022 6:12 PM EDT): Continue with APAP PRN In agreement with referral to Ortho Assessment & Plan (07/29/2022 12:10 PM EDT): -Declines interest in referral to PT, ortho, or [facility] joint injection clinic at this time -Encouraged symptomatic management including topical voltaren and lidocaine patches PRN -Continue with APAP PRN Follow up in 2 months, sooner PRN Bilateral epiphora 05/07/2022 Overview (03/17/2023): -Symptoms began mid Mar 2022 -Eval at [facility] 06/03/22 that revealed stenosis of [...] with Kelsey's Palsy -Followed with specialists including [facility] Neuro in the past Essential hypertension 07/17/2021 Overview (03/17/2023): -BP goal < 140/90 mmHg -Continues with losartan-hydrochlorothiazide 50-12.5 mg daily Assessment & Plan (12/20/2024 8:52 AM EDT): Borderline elevated in office today, but well controlled per home readings. Cont current regimen and f/up sooner prn. Assessment & Plan (10/18/2024 7:24 AM EDT): [...] of balance Follow up in 2-4 wks Class 3 severe obesity in adult 04/24/2022 12/20/2024 Morbid obesity (CMS/HCC) 07/17/202110/2022 Encounters Date Type Department Care Team Description 02/05/2025 9:30 AM EDT Procedure Visit [facility] MED[facility]INE [address] [place] [address] Romana Mcintosh CNM Atypical squamous cells of undetermined significance (ASCUS) on Papanicolaou smear of cervix (Primary Dx) 02/05/2025 Travel 02/04/[address] [facility] MED[facility]INE [address] [place] [address] Romana Mcintosh CNM chart prep 01/29/2025 Travel 12/19/2024 9:45 AM EDT Office Visit [facility] [address] [place] [address] Yessenia Looney FNP Peripheral polyneuropathy (Primary Dx); Dietary counseling; Exercise counseling; Essential hypertension; Healthcare maintenance; Adenomatous polyp; Colon cancer screening; Pure hypercholesterolemia; Kelsey's palsy; Median neuropathy of both upper extremities 12/19/2024 Travel 12/18/2024 Travel 12/18/[address] [facility]INE [address] [place] [address] Yessenia Looney FNP CHART PREP from Last 3 Months Immunizations Immunization Administration Dates Next Due INFLUENZA INJECTABLE QUADRIV ALANT CCIIV4 MDCK Multi-dose vial 04/28/2021 INFLUENZA VACCINE QUADRIVALE NT RECOMBINANT PRESERVATIVE FREE RIV4 02/14/2020 Influenza injectable quadriv alent IIV4 with preservative 01/02/2015 Influenza injectable quadrivalent preservative f ree 03/16/2023,04/23/2022 Tdap 01/02/2015 Zoster, Recombinant 09/16/2020,07/15/2020 Family History Medical History Relation Name Comments Breast cancer Maternal Grandmother unknow n age Colon cancer Neg Hx Ovarian cancer Neg Hx Uterine cancer Neg Hx Relation Name Status Comments Maternal Grandmother Social History Tobacco Use Types Packs/Day Years [...] 9.6 oz) 02/05/2025 9:32 AM EDT Height 160 cm (5' 3 ) 10/17/2024 9:55 AM EDT Body Mass Index 41.56 10/17/2024 9:55 AM EDT Plan of Treatment Health Maintenance Due Date Last Done Comments CT Colonography 1965 FIT DNA/Cologuard 1965 FIT 1965 FOBT 1965 Sigmoidoscopy 1965 HPV/Cotest 10/02/1995 Pneumococcal Vaccine: 50+ Years (1 of 1 - PCV) 10/02/2015 Cervical Cancer Screening 11/26/2021 Pap Smear 11/26/2021 11/26/2020 Colonoscopy 09/24/2023 09/23/2020 Colorectal Cancer Screening 09/24/2023 COVID-19 Vaccine (3 - season) 2024 02/16/2021, 01/26/2021 Influenza Vaccine (#1) 2024 , 04/23/2022, 04/28/2021, Additional history exists DTaP/Tdap/Td Vaccines (2 - Td or Tdap) 01/02/2025 01/02/2015 Alcohol/Substance Use Screening 05/14/2025 05/14/2024 Depression Screening 05/14/2025 05/14/2024, 05/14/19 SDOH Screening 05/14/2025 05/14/2024 Mammogram 09/20/2025 09/20/2024, 0606/2023, 09/10/2021, Additional history exists Disability Screening 12/18/2025 12/18/2024 Tobacco Screening 12/19/2025 12/19/2024 Lipid Panel 10/17/2029 10/17/2024, 08/0 08/2021, 07/23/2020 [...] patient's age to complete this topic Hepatitis B Vaccines Discontinued IPV Vaccines Aged Out No longer eligi [...] Procedure Name Priority Date/Time Associated Diagnosis Comments HEPATITIS C VIRAL RNA, QUANTITATIVE, REAL-TIME PCR [...] Recently Relevant to Health Maintenance Results * Hepatitis C Viral RNA, Quantitative, Real-Time PCR (10/17/2024 10:36 AM EDT) Hepatitis C Viral Load <15 NOT DETECTED NOT DETECTED IU/mL [facility] HCV Log PCR <1.18 NOT DETECTED NOT DETECTED Log IU/mL [facility] Comment:For additional infor mation, please refer [email or web address]/[email or web address](This link is being provided for informational/educational purposes only.)THIS TEST WAS PERFORMED AT:[facility] [place] [phone] MC MD Blood 10/17/2024 10:3 6 AM EDT 10/17/2024 11:51 AM EDT us Yessenia Looney MAMMALOGY TEACHER LAB BLOOD ORDERABLES Final Res ult [facility] [address] [place] [phone] * HIV-1/2 Antigen and Antibodies, Fourth Generation, with Reflexes (10/17/2024 10:36 AM EDT) HIV AB/AG Nonreactive Nonreactive [facility] Comment:HIV-1 p24 Ag and/or HIV-1/HIV-2 Ab not detected.A test result that is nonreactive does not exclude thepossibility of exposure to or infection with HIV-1 and/orHIV-2. Nonreactive results in this assay for individualswith prior exposure to HIV-1 and/or HIV-2 may be due toantigen and antibody levels that are below the limit ofdetection of this assay.The [employer] HIV Ag/Ab Combo assay result andsupplemental assay results should be interpreted inconjunction with the patient's clinical presentation,history and other laboratory results. If the results areinconsistent with clinical evidence, additional testing issuggested to confirm the result. Blood Venous blood specimen / Unknown 10/17/2024 10:36 AM EDT 10/17/2024 11:56 AM EDT us Yessenia Looney [facility] BLOOD ORDERABLES Final Res ult [facility] [address] [place] [phone] * (ABNORMAL) Lipid Panel, Standard (10/17/2024 10:36 AM EDT) Triglycerides 99 <150 mg/dL [facility] Comment:Desirable Triglyceri de: less than 150 mg/dLBorderline High Triglyceride 150-199 mg/dLHigh Triglyceride: 200-499 mg/dLVery High Triglyceride: greater than or equal to 5OO mg/dL Cholesterol 231(H) <200 mg/dL [facility] Comment:Desirable Cholestero l: less than 200 mg/dLBorderline High Cholesterol: 200-239 mg/dLHigh Cholesterol: greater than 239 mg/dL LDL Cholesterol Calculated 156(H) <100 mg/dL [facility] Comment:Desirable LDL: less than 100 mg/dLNear Optimal/Above Optimal LDL: 110- 129 mg/dLBorderline High LDL: 130-159 mg/dLHigh LDL: 160-189 mg/dLVery High LDL: greater than or equal to 190 mg/dL HDL Cholesterol 56 >40 mg/dL [facility] Comment:Desirable HDL: great er than 40 mg/dL Note: This HDL assay may give artificially low results in patients with liver disease. Blood Venous blood specimen / Unknown 10/17/2024 10:36 AM EDT 10/17/2024 11:56 AM EDT us Yessenia Looney MAMMALOGY TEACHER LAB BLOOD ORDERABLES Final Res ult [facility] [address] [place] [phone] * BI Mammogram Screening Tomosynthesis Bilateral (09/20/2024 9:15 AM EDT) Anatomical Region Laterality Modality Breast Bilateral Mammography 09/20/2024 9:15 AM EDT Narrative 09/24/2024 1:04 PM EDT [facility] [address] [place] [address] Mammography Report Signed Patient: Radha Farmer MR#: [id number] : 1965 Acct:[id number] Age/Sex: 58 / F ADM Date: 09/20/24 Loc: HO.MAMMO Attending Dr: Yessenia ABDI Ordering Physician: Yessenia Looney Results: 1Negat drea Date of Service: 09/20/24 Follow Up: 1 Year From [facility] Mammogram Procedure(s): MM tomosynthesis screening BI Accession Number(s): [id number] cc: Yessenia Looney EXAMINATION: MM SCREENING DIGITAL [...] 09/24/24 1301 DD/ 0915 TD/TT: 09/20/24 0931 Dry Chain Operator: Procedure Note Donotuseinterpreter, Image - 09/24/[facility] [address] [place] [address] Mammography Report Signed Patient: Radha FarmerMR#: [id number] : 1965Acct:[id number] Age/Sex: 58 / FADM Date: 09/20/24 Loc: HO.MAMMO Attending Dr: Yessenia Looney MAMMALOGY TEACHER Ordering Physician: Yessenia Looney FNPResults: 1Negat drea Date of Service: 09/20/24Follow Up: [facility] Procedure(s): MM tomosynthesis screening BI Accession Number(s): [id number] cc: Yessenia Looney MAMMALOGY TEACHER EXAMINATION: MM SCREENING DIGITAL BREAST TOMOSYNTHESIS, BILATERAL [...] 09/24/24 1301 DD/ 0915 TD/TT: 09/20/24 0931 Dry Chain Operator: Yessenia Richiemil MAMMALOGY TEACHER IMG BI PROCEDURES Edited Resul t - Final * (ABNORMAL) THINPREP TIS PAP (11/26/2020 7:26 AM EDT) Clinical Information: None given [facility] COMMENT SEE COMMENT [facility] [...] has been evaluated with computer assisted technology. [facility] Director Business Management : SEE COMMENT [facility] Comment: KN, CT(ASCP) CT screening location: [place] [address] General Categorization: EPITHELIAL CELL ABNORMALITY(A) [facility] Interpretation/R esult: Atypical Squamous Cells of Undetermined Significance (ASC-US)(A) [facility] LMP: NONE GIVEN [facility] PATHOLOGIST: SEE COMMENT [facility] Comment: Michele Hinson M.D. Direct , Board Certified in Anatomic and Clinical Pathology and Cytopathology (electronic signature) Consulting Pathologist [facility] [address] [place] [address] Prev. BX: NONE GIVEN [facility] Prev. PAP: NONE GIVEN [facility] SOURCE: None given [facility] Statement Of Adequacy: SEE COMMENT [facility] Comment: Satisfactory for evaluation. Endocervical/transformation zone component present. Age and/or menstrual status not provided 11/26/2020 7:26 AM EDT Historical Provider LAB PATHOLOGY ORDERABLES Final Result [facility] [address] * Colonoscopy (09/23/2020) Colonoscopy Normal Normal Narrative Tita Lopez - 09/23/2020 Recommended 3 year follow up us Historical Provider HEALTH MAINTENANCE Edited Result - Final from Last 3 Months or Most Recently Relevant to Health Maintenance Insurance [address] [place] [phone] [facility] [address] [place] [id number] [address] [place] [id number] Care Teams Gre Tutor Relationship Specialty Start Date End Date Yessenia Looney FNP [address] [place] [address] PCP - General Family Medicine 12/09/21
--- OUTSIDE RECORDS SUMMARY | 2025-02-05 21:21 | XMS_ITS | Encounter Summary ---
Author Organization [employer] Address [address] [place] [address] Care Team Providers Care Supervisor Drilling And Shooting Name Role Phone Yessenia Looney JIN Primary Care Provider [phone] Encounter Details Date Type Department Care Team (Latest Contact Info) Description 02/05/2025 Travel Social History Tobacco Use Types Packs/Day Years Used Date Smoking Tobacco: Never Passive Smoke Exposure: Never Smokeless Tobacco: Never Alcohol Use Standard Drinks/Week Comments Not Currently [...] documented as of this encounter Care Teams Supervisor Drilling And Shooting Relationship Specialty Start Date End Date Yessenia Looney FNP [address] [place] [phone] PCP - General Family Medicine 12/09/21 documented as of this encounter
--- OUTSIDE RECORDS SUMMARY | 2025-02-05 21:21 | XMS_ITS | Encounter Summary ---
Author Organization [employer] [facility] Address [address] [place] [address] [address] [place] [address] Care Team Providers Care Mixer Blender Name Role Phone Yessenia Looney Primary Care Provider [phone] Encounter Details Date Type Department Care Team (Latest Contact Info) Description 11/26/2020 Abstract [facility] CONVERSIONS Dental, Provider, DDS Social History Tobacco [...] on filedocumented in this encounter Care Teams Mixer Blender Relationship Specialty Start Date End Date Yessenia Looney FNP [address] [place] [address] PCP - General Family Medicine 12/09/21 documented as of this encounter
--- OUTSIDE RECORDS SUMMARY | 2025-02-05 21:21 | XMS_ITS | Encounter Summary ---
Author Organization [employer] Address [address] [facility] [address]t [place] [address] Care Team Providers Care Industrial Economics Teacher Name Role Phone Yessenia Looney Primary Care Provider [phone] Reason for Visit * Reason Onset Date Comments Appointment Request 09/13/2023 Encounter Details Date Type Department Care Team ([facility] st Contact Info) Description 09/13/2023 Telephone [facility] [address] [place] [address] Yessenia Looney FNP [address] [place] [address] Appointment Request Social History Tobacco Use Types [...] pt had a punctual stenosis done with [facility] and was advised bu surgeon to follow up with pcp. Please contact pt at [phone] documented in this encounter Plan of Treatment Not on file documented as of this encounter Visit Diagnoses Not on filedocumented in this encounter Additional Health Concerns Assessment Noted Time PHQ-9 Depression Total Score: 1 10/29/19 23 8:49 AM EDT documented as of this encounter Care Teams Industrial Economics Teacher Relationship Specialty Start Date End Date Yessenia Looney FNP [address] [place] [address] PCP - General Family Medicine 12/09/21 documented as of this encounter
== END 2025-02-05 18:19 | disposition home or self-care (01) ==
LOC: HO.HHCLNP 18:18
PROVIDERS: Visit Provider Advanced Practice Midwife
DX: Z11.51 Encounter for screening for human papillomavirus (HPV) (principal); R87.610 Atypical squamous cells of undetermined significance on cytologic smear of cervix (ASC-US)
CPT/HCPCS: 87626; 88175

== ENCOUNTER 2025-03-13 09:14 | Outpatient (AMB) | payer OTHER, SELFPAY ==
--- NOTE | 2025-03-13 09:24 | A.OFFVIS_ITS ---
Intake Visit Reasons: [place] Palsy Allergies No Known Allergies (No Known Allergies*) Allergy (Verified 02/17/23 11:14) HPI Comments Details: 59 y/o woman with h/o [place] palsy, non specific white matter lesions seen on MRI of brain. She is presenting with numbness in the right big toe and hands. The patient reports numbness in the right great toe which began in September. Previously, the toe would occasionally get cold and become painful, but the current numbness is not associated with pain. The patient also has persistent, non-painful numbness in the hands, which has been diagnosed as carpal tunnel syndrome. 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 The patient tried wearing wrist splints at night but reported they caused increased numbness and pain. A neurology evaluation was performed between September and December, which included testing on the hands and feet. The study on the foot was noted to be incomplete, with a recommendation for a repeat test. The patient reports a history of tremors. Recent laboratory results include an HbA1c of 5.6, vitamin B12 of 646, and TSH of 1.04. [facility] Medical History (Updated 03/13/25 @ 09:36 by Jigna Garcia MD) Increased BMI Chronic back pain History of Kelsey's palsy PONV (postoperative nausea and vomiting) Surgical History H/O colonoscopy Hx of cholecystectomy H/O tubal ligation Social History (Updated 02/17/23 @ 11:08 by GRICELDA Borden) Household Members: Children Are you a primary transitions rn care coordinator to a significant other at home: No Do you presently have visiting nurse or other home services: No Alcohol intake: current Alcohol intake frequency: holidays/special occasions only Patient Tobacco Use Status: Never used Tobacco Current occupational status: employed 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 HEENT:?No headache, vision changes, hearing loss, nasal congestion, sore throat. Cardiovascular:?No chest pain, palpitations, orthopnea, PND, or leg swelling. Respiratory:? Complain of shortness of breath Gastrointestinal:?No nausea, vomiting, abdominal pain, diarrhea, or constipation. Genitourinary:?No dysuria, frequency, incontinence, or hematuria. Musculoskeletal:?No joint pain, stiffness, weakness, or muscle aches. Neurological:? Complain of tremors and numbness in hands and right big toe Psychiatric:?No anxiety, depression, mood swings, sleep disturbance, or hallucinations. Endocrine:?No heat/cold intolerance, polydipsia, polyuria, or hair/skin changes. Hematologic/Lymphatic:?No easy bruising, bleeding, or lymphadenopathy. Integumentary (Skin):?No rash, lesions, itching, or color changes. Allergic/Immunologic:?No seasonal allergies, hives, or recurrent infections. Physical Exam Neuro Other: Mental Status: Alert and oriented to person, place, and time. Normal attention. Normal spontaneous speech, fluency, and comprehension. No obvious issues with mood and memory. Affect is appropriate. Cranial Nerves: CN II: Visual joiner full to confrontation, visual acuity intact. CN III, IV, : Pupils equal, round, reactive to light and accommodation. Extraocular movements are normal. CN V: Facial sensation is normal. CN VII: Mild right-sided facial weakness CN VIII: Hearing intact to bedside conversation is normal. CN IX, X: Palate elevates symmetrically. CN XI: Shoulder shrug and head turn symmetrical. CN XII: Tongue midline without atrophy or fasciculations. Motor: Trophic skin changes and mild flexion deformity of toes is noted. Reflexes: Deep tendon reflexes are trace to absent with flexor plantars Coordination: [id number] is okay. Gait and Station: No obvious gait abnormality. No ataxia or instability. Sensory: Vibratory sensation is diminished in toes. Extrapyramidal: Full facial expressions and blinking. No rigidity. Movements are appropriate with no tremor or abnormality. Speech: Normal; no dysarthria or tremor. Assessment & Plan Assessment & Plan (1) Carpal tunnel syndrome: Comment: EMG/NCS at [facility] in Nov 2024: b/l mod median neuropathy across CT Code(s): G56.00 - Carpal tunnel syndrome, unspecified upper limb Category: Medical Qualifiers: Laterality: bilateral Qualified Code(s): G56.03 - Carpal tunnel syndrome, bilateral upper limbs (2) Peripheral neuropathy: Comment: EMG/NCS at [facility] in Nov 2024: Mild SM PN Code(s): G62.9 - Polyneuropathy, unspecified Category: Medical Qualifiers: Peripheral neuropathy type: polyneuropathy, unspecified Qualified Code(s): G62.9 - Polyneuropathy, unspecified Plan Impression: 1. 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 She has tried wrist splints, which have not worked well. 2. Mild peripheral neuropathy detected on EMG nerve conduction study in November of 2024 3. Right big toe pain that might suggest further worsening of neuropathy or tarsal tunnel syndrome 4. Mild right chronic facial neuropathy Recommendations: 1. Education about carpal tunnel syndrome and recommendations to minimize repetitive hand use. She was educated about further treatment including surgical decompression but at this time she was not interested. 2. EMG nerve conduction study right foot and leg 3. Weight reduction 4. Comfortable shoes with shoe inserts Orders: Orders NE nerve conduction velocity Today G57.50 - Tarsal tunnel syndrome, unspecified lower limb NE electromyogram (EMG) Today G62.9 - Polyneuropathy, unspecified Coding Level of Care Code New Pt Level 4 (16641) Diagnoses Bilateral carpal tunnel syndrome G56.03 Laterality: bilateral Peripheral polyneuropathy G62.9 Peripheral neuropathy type: polyneuropathy, unspecified
== END 2025-03-13 09:42 | disposition home or self-care (01) ==
LOC: HO.HSM 09:15
PROVIDERS: PCP Registered Nurse; Visit Provider Psychiatry & Neurology Neurology
DX: G56.03 Carpal tunnel syndrome, bilateral upper limbs (principal); G62.9 Polyneuropathy, unspecified
CPT/HCPCS: 99204

== ENCOUNTER → 2025-03-13 09:14 | Outpatient (BNVA) | payer OTHER, SELFPAY | PROVIDERS: PCP Registered Nurse; Visit Provider Psychiatry & Neurology Neurology | DX: G56.03 Carpal tunnel syndrome, bilateral upper limbs (principal); G62.9 Polyneuropathy, unspecified | CPT/HCPCS: 99202 ==

== ENCOUNTER 2025-04-04 13:32 | Outpatient (REF) | payer OTHER, SELFPAY ==
--- NOTE | 2025-04-04 13:59 | EMG_ITS ---
Chief complaint: Pain in right leg and foot Referred by: Shelbi Garcia MD Procedure done: NCS and EMG of right lower extremity [place] [id number] MTDD
--- OUTSIDE RECORDS SUMMARY | 2025-04-04 17:38 | XMS_ITS | Encounter Summary ---
Author Organization [employer] Address [address] [facility] [address]t [place] [address] Care Team Providers Care Belt Dresser Name Role Phone Yessenia Looney Primary Care Provider [phone] Reason for Visit * Reason Onset Date Comments Appointment Request 09/13/2023 Encounter Details Date Type Department Care Team ([facility] st Contact Info) Description 09/13/2023 Telephone [facility] MEDICINE [address] [place] [address] Yessenia Looney FNP [address] [place] [address] Appointment Request Social History Tobacco Use Types [...] pt had a punctual stenosis done with [facility] and was advised bu surgeon to follow up with pcp. Please contact pt at [phone] documented in this encounter Plan of Treatment Not on file documented as of this encounter Visit Diagnoses Not on filedocumented in this encounter Additional Health Concerns Assessment Noted Time PHQ-9 Depression Total Score: 1 10/29/19 23 8:49 AM EDT documented as of this encounter Care Teams Belt Dresser Relationship Specialty Start Date End Date Yessenia Looney FNP [address] [place] [address] PCP - General Family Medicine 12/09/21 documented as of this encounter
--- OUTSIDE RECORDS SUMMARY | 2025-04-04 17:38 | XMS_ITS | Clinical Summary ---
Author Organization [employer] Address [address] [place] [address] 7t [place] [address] Care Team Providers Care Microbiology Supervisor Name Role Phone Yessenia Looney Primary Care Provider Allergies No known active allergies Medications Blood Pressure Monitor kit Check blood pressure twice a week. Dx hypertension 1 kit 08/03/19 24 Active tobramycin-dex AMETHasone (Tobradex) ophthalmic suspension INSTILL 1 DROP INTO BOTH EYES TWO TIMES A DAY 08/01/19 24 Active naproxen (Naprosyn) 500 MG tabletIndicati ons:Pain Take 1 tablet (500 mg) by mouth if needed in the morning and at bedtime for mild pain. 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 Repeat in 3 year. Referred to [facility] on 12/20/24 Mammo: 09/20/24: BIRADS 1 Pap: due. Encouraged to schedule. Osteoarthritis of both knees 07/29/2022 Overview (08/04/2023): -XR 07/08/21: IMPRESSION: Mild degenerative changes. No fracture or dislocation. -Continues with APAP PRN, trial nabumetone BID PRN -Eval by [facility] Feb 2023 Assessment & Plan (08/04/2023 10:33 AM EDT): Discussed evidence and consideration of turmeric for arthritis (pt already using in her cooking) Assessment & Plan (10/31/2022 6:12 PM EDT): Continue with APAP PRN In agreement with referral to Ortho Assessment & Plan (07/29/2022 12:10 PM EDT): -Declines interest in referral to PT, ortho, or [facility] joint injection clinic at this time -Encouraged symptomatic management including topical voltaren and lidocaine patches PRN -Continue with APAP PRN Follow up in 2 months, sooner PRN Bilateral epiphora 05/07/2022 Overview (03/17/2023): -Symptoms began mid Mar 2022 -Eval at [facility] 06/03/22 that revealed [...] with Kelsey's Palsy -Followed with specialists including [facility] in the past Essential hypertension 07/17/2021 [...] Encounters Date Type Department Care Team Description 04/01/2025 Refill [facility] MEDICINE [address] [place] [address] Yessenia Looney FNP 02/14/2025 Telephone [facility] MEDICINE [address] [place] [address] Yessenia Looney FNP 02/08/2025 Results Follow-Up [facility] MEDICINE [address] [facility] [place] [address] Gama White CNM Pap Smear 02/05/2025 9:30 AM EDT Procedure Visit [facility] [place] [address] Gama White CNM Atypical squamous cells of undetermined significance (ASCUS) on Papanicolaou smear of cervix (Primary Dx) 02/05/2025 Travel 02/04/2025 Telephone [facility] MEDICINE [address] [place] [address] Gama White CNM chart prep 01/29/2025 Travel from Last 3 Months Immunizations Immunization Administration [...] 1965 FIT 1965 FOBT 1965 Sigmoidoscopy 1965 Pneumococcal Vaccine: 50+ Years (1 of 1 - PCV) 10/02/2015 RSV Patients and Patients Aged 60 years or older (1 - Risk 50-74 years 1-dose series) 10/02/2015 Colonoscopy 09/24/2023 09/23/2020 Colorectal Cancer Screening 09/24/2023 COVID-19 Vaccine ( season) 2024 02/16/2021, 01/26/2021 Influenza Vaccine (#1) 2024 , 04/23/2022, 04/28/2021, Additional history exists DTaP/Tdap/Td Vaccines (2 - Td or Tdap) 01/02/2025 01/02/2015 Alcohol/Substance Use Screening 05/14/2025 05/14/2024 Depression Screening 05/14/2025 05/14/2024, 05/14/19 SDOH Screening 05/14/2025 05/14/2024 Mammogram 09/20/2025 09/20/2024, 06/0 06/2023, 09/10/2021, Additional history exists Disability Screening 12/18/2025 12/18/2024 Tobacco Screening 12/19/2025 12/19/2024 Lipid Panel 10/17/2029 10/17/2024, 08/0 08/2021, 07/23/2020 Cervical Cancer Screening 02/05/2030 HPV/Cotest 02/05/2030 02/05/2025 Pap Smear 02/05/2030 02/05/2025, 11/26/2020 Zoster Vaccines Completed 09/16/2020, 07/15/2020 HIV Screening [...] Procedure Name Priority Date/Time Associated Diagnosis Comments PAP SMEAR Routine 02/05/2025 10:11 AM EDT Atypical squamous cells of undetermined significance (ASCUS) on Papanicolaou smear of cervix HPV DNA, LOW/HIGH RISK Routine 02/05/2025 10:11 AM EDT HEPATITIS C VIRAL RNA, QUANTITATIVE, REAL-TIME PCR Routine 10/17/2024 10:36 AM EDT Healthcare maintenance HIV 1/2 ANTIGEN/ANTIBODY, FOURTH GENERATION W/RFL Routine 10/17/2024 10:36 AM EDT Healthcare maintenance LIPID PANEL, STANDARD Routine 10/17/2024 10:36 AM EDT Healthcare maintenance BI MAMMOGRAM SCREENING TOMOSYNTHESIS BILATERAL Routine 09/20/2024 9:15 AM EDT HM COLONOSCOPY Routine 09/23/2020 from Last 3 Months or Most Recently Relevant to Health Maintenance Results * HPV DNA, Low/High Risk (02/05/2025 10:11 AM EDT) HPV High Risk Negative Negative [facility] HPV Genotype 16 Negative Negative [facility] HPV Genotype 18 Negative Negative [facility] Comment:HPV testing performe d at [facility] (CLIA#[id number]), [address] [place] [address].Testing for HPV was performed using the Bonnie [employer]IELLA 6800system. The presence of HPV in the female genital tract isassociated with a number of diseases, including cervicalcarcinoma. The HPV DNA high risk pool tests for HPV 31, 33,35, 39, 45, 51, 52, 56, 58, 59, 66 and 68. The testing forHPV 16 and 18 genotypes has also been performed. A positiveresult indicates detection of nucleic acid sequences fromone or more subtypes, whereas a negative result indicatessuch sequences were not detected. 02/05/2025 10:1 1 AM EDT 02/06/2025 6:45 AM EDT Gama White CNM LAB BLOOD ORDERABLES Gunjan brown Result [facility] [address] [place] [phone] * Pap Smear (02/05/2025 10:11 AM EDT) Swab Cervix uteri structure / Unknown 02/05/2025 10:11 AM EDT 02/06/2025 6:15 AM EDT Narrative [facility] - 02/08/2025 8:52 AM EDT ----- ------- Name: Radha Farmer Age/Sex: 59/F : 1965 Unit#: [id number] Attend Dr: GAMA WHITE CNM Re02/05/25 Status: DEP REF Location: HO.HHCLNP Disch: ----- ------- SPEC : [id number] RECD: 02/06/25 STATUS: IVY SHEETS NUM: [id number] JEWELS: 02/05/25-[address]: GAMA WHITE CNM ENTERED: 02/06/25 SP TYPE: Pap [facility] DR: ORDERED: Pap Smear Interpretation Satisfactory for evaluation. Negative for intraepithelial lesion or malignancy. HPV High Risk: Negative HPV Genotyping 16: Negative HPV Genotyping 18: Negative Clinical Information LMP: Post-menopausal Previous PAP test: ASCUS 2020 Other surgery: Other history: Material Received ThinPrep-Cervical ----- ------- Signed (signature on file) PARVIN Acevedo (ASCP) 02/08/25 0852 ----- ------- END OF REPORT us Gama White [facility] CYTOLOGY ORDERABLES F inal Result [facility] [address] [place] [address] [phone] * Hepatitis C Viral RNA, Quantitative, Real-Time PCR (10/17/2024 10:36 AM EDT) Hepatitis C Viral Load <15 NOT DETECTED NOT DETECTED IU/mL [facility] HCV Log PCR <1.18 NOT DETECTED NOT DETECTED Log IU/mL [facility] Comment:For additional infor ijm, please refer tohttp://education.[employer]/faq/RBX90z4(This link is being provided for informational/educational purposes only.)THIS TEST WAS PERFORMED AT:[facility] [place] [phone] MC MD Blood 10/17/2024 10:3 6 AM EDT 10/17/2024 11:51 AM EDT Yessenia Looney [facility] LAB BLOOD ORDERABLES Final Res ult Performing Organization Address City/[facility]/ZIP Co de Phone Number [facility] [address] [place] [phone] * HIV-1/2 Antigen and Antibodies, Fourth Generation, with Reflexes (10/17/2024 10:36 AM EDT) Pathologist [facility] HIV AB/AG Nonreactive Nonreactive [facility] Comment:HIV-1 p24 Ag and/or HIV-1/HIV-2 Ab not detected.A test result that is nonreactive does not exclude thepossibility of exposure to or infection with HIV-1 and/orHIV-2. Nonreactive results in this assay for individualswith prior exposure to HIV-1 and/or HIV-2 may be due toantigen and antibody levels that are below the limit ofdetection of this assay.The [employer] HIV Ag/Ab Combo assay result andsupplemental assay results should be interpreted inconjunction with the patient's clinical presentation,history and other laboratory results. If the results areinconsistent with clinical evidence, additional testing issuggested to confirm the result. Blood Venous blood specimen / Unknown 10/17/2024 10:36 AM EDT 10/17/2024 11:56 AM EDT Yessenia Looney [facility] LAB BLOOD ORDERABLES Final Res ult Performing Organization Address [facility]/ZIP Co de Phone Number [facility] [address] [place] [phone] * (ABNORMAL) Lipid Panel, Standard (10/17/2024 10:36 AM EDT) Pathologist [facility] Triglycerides 99 <150 mg/dL [facility] Comment:Desirable Triglyceri de: less than 150 mg/dLBorderline High Triglyceride 150-199 mg/dLHigh Triglyceride: 200-499 mg/dLVery High Triglyceride: greater than or equal to 5OO mg/dL Cholesterol 231(H) <200 mg/dL [facility] Comment:Desirable Cholestero l: less than 200 mg/dLBorderline High Cholesterol: 200-239 mg/dLHigh Cholesterol: greater than 239 mg/dL LDL Cholesterol Calculated 156(H) <100 mg/dL [facility] Comment:Desirable LDL: less than 100 mg/dLNear Optimal/Above Optimal LDL: 110- 129 mg/dLBorderline High LDL: 130-159 mg/dLHigh LDL: 160-189 mg/dLVery High LDL: greater than or equal to 190 mg/dL HDL Cholesterol 56 >40 mg/dL [facility] Comment:Desirable HDL: great er than 40 mg/dL Note: This HDL assay may give artificially low results in patients with liver disease. Blood Venous blood specimen / Unknown 10/17/2024 10:36 AM EDT 10/17/2024 11:56 AM EDT us Yessenia ABDI LAB BLOOD ORDERABLES Final Res ult [facility] [address] [place] [phone] * BI Mammogram Screening Tomosynthesis Bilateral (09/20/2024 9:15 AM EDT) Anatomical Region Laterality Modality Breast Bilateral Mammography 09/20/2024 9:15 AM EDT Narrative 09/24/2024 1:04 PM EDT [facility] [address] [place] [address] Mammography Report Signed Patient: Radha Farmer MR#: [id number] : 1965 Acct:[id number] Age/Sex: 58 / F ADM Date: 09/20/24 Loc: HO.MAMMO Attending Dr: Yessenia ABDI Ordering Physician: Yessenia Looney Results: 1Negat drea Date of Service: 09/20/24 Follow Up: 1 Year From Orig inal Mammogram Procedure(s): MM tomosynthesis screening BI Accession Number(s): [id number] cc: Yessenia Looney EXAMINATION: MM SCREENING DIGITAL [...] 09/24/24 1301 DD/ 0915 TD/TT: 09/20/24 0931 Safety Grooving Machine Operator: Procedure Note Donotuseinterpreter, Image - 09/24/2024 [facility] [address] [place], [place] [address] Mammography Report Signed Patient: Radha FarmerMR#: [id number] : 1965Acct:[id number] Age/Sex: 58 / FADM Date: 09/20/24 Loc: HO.MAMMO Attending Dr: Yessenia Looney APPLIANCE SERVICER Ordering Physician: Yessenia LooneyPResults: 1Negat drea Date of Service: 09/20/24Follow Up: 1 Year From Orig inal Mammogram Procedure(s): MM tomosynthesis screening BI Accession Number(s): [id number] cc: Yessenia Looney EXAMINATION: MM SCREENING DIGITAL [...] 09/24/24 1301 DD/ 0915 TD/TT: 09/20/24 0931 Safety Grooving Machine Operator: Yessenia Looney APPLIANCE SERVICER IMG BI PROCEDURES Edited Resul t - Final * Hm Colonoscopy (09/23/2020) Colonoscopy Normal Normal Narrative Tita Lopez - 09/23/2020 Recommended 3 year follow up Historical Provider HEALTH MAINTENANCE Edited Result - Final from Last 3 Months or Most Recently Relevant to Health Maintenance Insurance [facility] [phone] Care Teams Microbiology Supervisor Relationship Specialty Start Date End Date Yessenia Looney FNP [address] [place] [phone] PCP - General Family Medicine 12/09/21
--- OUTSIDE RECORDS SUMMARY | 2025-04-04 17:38 | XMS_ITS | Encounter Summary ---
Author Organization [employer] Address [address] [facility] 7t [place] [address] Care Team Providers Care Sprinkler Truck Driver Name Role Phone Yessenia Looney Primary Care Provider [phone] Reason for Visit * Reason Comments Med Refill Encounter Details Date Type Department Care Team ([facility] st Contact Info) Description 04/01/2025 Refill [facility] MEDICINE [address] [place] [address] Yessenia Looney FNP [address] [place] [address] Social History Tobacco Use Types Packs/Day Years [...] documented as of this encounter Care Teams Sprinkler Truck Driver Relationship Specialty Start Date End Date Yessenia Looney FNP [address] [place] [address] PCP - General Family Medicine 12/09/21 documented as of this encounter
--- OUTSIDE RECORDS SUMMARY | 2025-04-04 17:38 | XMS_ITS | Encounter Summary ---
Author Organization [employer] Address [address] [facility] [address] [place] [address] Care Team Providers Care Fryer Operator Name Role Phone Yessenia Looney JIN Primary Care Provider [phone] Encounter Details Date Type Department Care Team ([facility] st Contact Info) Description 03/03/2023 Abstract [facility] MEDICINE [address] [place] [address] Ngoc Shepherd Social History Tobacco Use Types [...] documented as of this encounter Care Teams Fryer Operator Relationship Specialty Start Date End Date Yessenia Looney FNP [address] [place] [phone] PCP - General Family Medicine 12/09/21 documented as of this encounter
--- OUTSIDE RECORDS SUMMARY | 2025-04-04 17:38 | XMS_ITS | Encounter Summary ---
Author Organization [employer] [facility] Address [address] [place] [address] 7t [place] [address] Care Team Providers Care An/Sqq 89(V)15 Sonar System Journeyman Name Role Phone Yessenia Looney Primary Care Provider [phone] Encounter Details Date Type Department Care Team [...] on filedocumented in this encounter Care Teams An/Sqq 89(V)15 Sonar System Journeyman Relationship Specialty Start Date End Date Yessenia Looney FNP [address] [place] [phone] PCP - General Family Medicine 12/09/21 documented as of this encounter
--- OUTSIDE RECORDS SUMMARY | 2025-04-04 17:38 | XMS_ITS | Encounter Summary ---
Author Organization [employer] Address [address] [facility] 7t [place] [address] Care Team Providers Care Property Claims Adjuster Name Role Phone Richiemil Yessenia JIN Primary Care Provider [phone] Encounter Details Date Type Department Care Team ([facility] Contact Info) Description 02/08/2025 Results Follow-Up [facility] MEDICINE [address] [place] [address] Romana Mcintosh CNM [address] [place] [address] Pap Smear Social History Tobacco Use Types Packs/Day Years [...] documented as of this encounter Care Teams Property Claims Adjuster Relationship Specialty Start Date End Date Yessenia Looney FNP [address] [place] [phone] PCP - General Family Medicine 12/09/21 documented as of this encounter
== END 2025-04-04 13:33 | disposition home or self-care (01) ==
LOC: HO.NEURO 13:32
PROVIDERS: PCP Registered Nurse; Visit Provider Psychiatry & Neurology Neurology
DX: G57.51 Tarsal tunnel syndrome, right lower limb (principal); G62.9 Polyneuropathy, unspecified
CPT/HCPCS: 95886; 95910

== ENCOUNTER → 2025-04-04 13:59 | Outpatient (BNV) | payer OTHER, SELFPAY | PROVIDERS: PCP Registered Nurse; Visit Provider Psychiatry & Neurology Neurology | DX: G57.81 Other specified mononeuropathies of right lower limb (principal) | CPT/HCPCS: 95886; 95910 ==

== ENCOUNTER → 2025-04-16 11:00 | Outpatient (BNVA) | payer OTHER, SELFPAY | PROVIDERS: PCP Registered Nurse; Visit Provider Registered Nurse | DX: S80.01XA Contusion of right knee, initial encounter (principal); S80.02XA Contusion of left knee, initial encounter; W18.09XA Striking against other object with subsequent fall, initial encounter | CPT/HCPCS: 73564; 99204 ==